=== PATIENT | female | born 1940 | race Caucasian/White ===

== ENCOUNTER 2017-11-30 10:46 | Inpatient (IN) ==
[~2017-11-30 10:46] MED LIST: diphenhydrAMINE 50 MG/1 ML VIAL IV ONE
[2017-11-30 11:48] LABS: Basophils % 0.6 % (0.0-0.8); Eosinophils # 0.2 10*3/uL (0.0-0.87); Eosinophils % 2.2 % (0.00-10.9); Hematocrit 24.6 VOL% (35.7-47.0); Hemoglobin 8.3 GM/DL (12.0-16.0); Immature Granulocytes % 0.4 %; Immature Granulocytes Absolute 0.03 #; Lymphocytes # 1.2 10*3/uL (1.4-4.0); Lymphocytes % 17.8 % (21.3-54.2); Mean Corpuscular HGB Conc 33.7 GM/DL (32-36); Mean Corpuscular Hemoglobin 32 PG (27-34); Mean Corpuscular Volume 96.1 FL (87-102); Mean Platelet Volume 9.3 FL (9.6-12.0); Monocytes # 0.7 10*3/uL (0.11-0.8); Monocytes % 9.4 % (1.7-12.7); Neutrophils # 4.8 10*3/uL (1.4-7.4); Neutrophils % 69.6 % (38.7-73.9); Platelet Count 298 T/CUMM (130-400); Red Blood Count 2.56 MC/CUMM (3.8-5.5); Red Cell Distribution Width 13.2 % (9.3-17.3); White Blood Count 6.9 T/CUMM (4-12)
[2017-11-30 12:06] LABS: Albumin 3.6 G/DL (3.4-5.0); Bilirubin,Total 0.5 MG/DL (0.2-1.0); Calcium 9.1 MG/DL (8.5-10.1); Osmolality,Calculated 254.6 MOS/KG (273-304); Potassium 4.1 MMOL/L (3.5-5.1); Total Protein 7.3 G/DL (6.4-8.3); Troponin I Only 0.027 NG/ML (0.00-0.045)
[2017-11-30] MEDS ORDERED: ALBUTEROL/IPRATROPIUM 3 ML NEB RESP TX STA (13:40)
[2017-11-30] MEDS ORDERED: FUROSEMIDE 40 MG/4 ML VIAL IV STA (13:41)
[2017-11-30] MEDS ORDERED: FUROSEMIDE 40 MG/4 ML VIAL ONE (13:43)
[2017-11-30] MEDS ORDERED: SODIUM CHLORIDE 0.9% 1,000 ML IV PRN (20:02)
[2017-11-30] MEDS ORDERED: DEXTROSE 50% 25 GM/50 ML VIAL IV PRN (20:05)
[2017-11-30] MEDS ORDERED: GLUCAGON 1 MG VIAL IM PRN (20:05)
[2017-11-30] MEDS ORDERED: ONDANSETRON 4 MG/2 ML VIAL IV PRN (20:05)
[2017-11-30] MEDS ORDERED: ACETAMINOPHEN 325 MG TABLET PO PRN (20:05)
[2017-11-30] MEDS ORDERED: ENOXAPARIN 30 MG/0.3 ML SYRINGE SUBCUT SCH (21:00)
[2017-11-30] MEDS ORDERED: ATORVASTATIN 40 MG TABLET PO SCH (21:00)
[2017-11-30] MEDS: INSULIN LISPRO 100 UNIT/ML SUBCUT SCH (22:07)
[2017-11-30] MEDS ORDERED: ALBUTEROL/IPRATROPIUM 3 ML NEB RESP TX PRN (22:49)
[2017-11-30] MEDS ORDERED: diphenhydrAMINE 50 MG/1 ML VIAL ONE (23:43)
[2017-12-01 04:50] LABS: Basophils % 0.5 % (0.0-0.8); Eosinophils # 0.1 10*3/uL (0.0-0.87); Eosinophils % 1.6 % (0.00-10.9); Hematocrit 22.8 VOL% (35.7-47.0); Hemoglobin 8.2 GM/DL (12.0-16.0); Immature Granulocytes % 0.7 %; Immature Granulocytes Absolute 0.06 #; Lymphocytes # 1.2 10*3/uL (1.4-4.0); Lymphocytes % 14.3 % (21.3-54.2); Mean Corpuscular Hemoglobin 33 PG (27-34); Mean Corpuscular Volume 92.7 FL (87-102); Mean Platelet Volume 9.9 FL (9.6-12.0); Monocytes # 0.9 10*3/uL (0.11-0.8); Monocytes % 10.4 % (1.7-12.7); Neutrophils # 6.2 10*3/uL (1.4-7.4); Neutrophils % 72.5 % (38.7-73.9); Platelet Count 285 T/CUMM (130-400); Red Blood Count 2.46 MC/CUMM (3.8-5.5); Red Cell Distribution Width 13.2 % (9.3-17.3); White Blood Count 8.5 T/CUMM (4-12)
[2017-12-01 04:55] LABS: Calcium 8.6 MG/DL (8.5-10.1); Osmolality,Calculated 249.5 MOS/KG (273-304); Potassium 4.4 MMOL/L (3.5-5.1)
[2017-12-01] MEDS: INSULIN LISPRO 100 UNIT/ML SUBCUT SCH ×2 (07:48→12:31)
[2017-12-01] MEDS ORDERED: FUROSEMIDE 20 MG/2 ML VIAL IV SCH (08:00)
[2017-12-01] MEDS ORDERED: LETROZOLE 2.5 MG TABLET PO SCH (09:00)
[2017-12-01] MEDS ORDERED: OLMESARTAN 20 MG TABLET PO SCH (09:00)
[2017-12-01] MEDS ORDERED: PANTOPRAZOLE 40 MG TABLET PO SCH (09:00)
[2017-12-01] MEDS ORDERED: CHOLECALCIFEROL 1,000 UNIT TABLET PO SCH (09:00)
[2017-12-01] MEDS ORDERED: ASPIRIN EC 81 MG TABLET PO SCH (09:00)
[2017-12-01] MEDS ORDERED: CALCIUM (CARBONATE)/VITAMIN D 600 MG-400 UNIT TABLET PO SCH (09:00)
[2017-12-01] MEDS ORDERED: LACTOBACILLUS ACIDOPHILUS/BULGARICUS CAPLET PO SCH (09:00)
[2017-12-01 11:34] VITALS: BP 172/77
== END 2017-12-01 13:45 | disposition home health service (06) | DRG 292 ==
LOC: N.ED 10:46 → N.EDINP 19:16 → N.2E 20:34
PROVIDERS: ADMIT Hospitalist; ATTEND Hospitalist
PROC: IRTHORA (2017-11-30 15:05)

== ENCOUNTER 2017-12-05 19:51 | Inpatient (IN) ==
[2017-12-05] MEDS ORDERED: MORPHINE 4 MG/1 ML VIAL IV STA (20:00)
[2017-12-05] MEDS ORDERED: ALBUTEROL/IPRATROPIUM 3 ML NEB RESP TX STA (20:00)
[2017-12-05] MEDS ORDERED: methylPREDNISolone SOD SUC 125 MG/2 ML VIAL IV STA (20:00)
[2017-12-05] MEDS ORDERED: ONDANSETRON 4 MG/2 ML VIAL IV STA (20:00)
[2017-12-05] MEDS ORDERED: MAGNESIUM SULF RIDER 2 GM in PREMIX 1 EACH IV STA (20:00)
[2017-12-05] MEDS ORDERED: ALBUTEROL 2.5 MG/3 ML NEB RESP TX SCH (20:00)
[2017-12-05] MEDS ORDERED: FUROSEMIDE 100 MG/10 ML VIAL IV STA (20:00)
[2017-12-05 20:15] LABS: Basophils # 0.1 10*3/uL (0.0-0.2); Basophils % 0.7 % (0.0-0.8); Eosinophils # 0.2 10*3/uL (0.0-0.87); Eosinophils % 1.8 % (0.00-10.9); Hematocrit 26.8 VOL% (35.7-47.0); Hemoglobin 8.9 GM/DL (12.0-16.0); Immature Granulocytes % 0.4 %; Immature Granulocytes Absolute 0.04 #; Lymphocytes # 2.6 10*3/uL (1.4-4.0); Lymphocytes % 27.1 % (21.3-54.2); Mean Corpuscular HGB Conc 33.2 GM/DL (32-36); Mean Corpuscular Hemoglobin 32 PG (27-34); Mean Corpuscular Volume 97.1 FL (87-102); Mean Platelet Volume 9.2 FL (9.6-12.0); Monocytes # 0.5 10*3/uL (0.11-0.8); Monocytes % 5.2 % (1.7-12.7); Neutrophils # 6.2 10*3/uL (1.4-7.4); Neutrophils % 64.8 % (38.7-73.9); Platelet Count 366 T/CUMM (130-400); Red Blood Count 2.76 MC/CUMM (3.8-5.5); Red Cell Distribution Width 13.2 % (9.3-17.3); White Blood Count 9.5 T/CUMM (4-12)
[2017-12-05] MEDS ORDERED: LORazepam 2 MG/1 ML VIAL ONE (20:23)
[2017-12-05] MEDS ORDERED: FUROSEMIDE 40 MG/4 ML VIAL ONE (20:28)
[2017-12-05] MEDS ORDERED: LORazepam 2 MG/1 ML VIAL IV STA (20:28)
[2017-12-05 20:29] LABS: PT Patient Result 10.6 SECS
[2017-12-05] MEDS ORDERED: MAGNESIUM SULF RIDER 0 ML IV ONE (20:29)
[2017-12-05 20:33] LABS: Lactic Acid 3.1 MMOL/L (0.4-2.0)
[2017-12-05 20:37] LABS: ABG Base Excess -7.8 MMOL/L (-2.5-2.5); ABG Oxygen Saturation 90.7 % (95-100); ABG PCO2 44.2 MM HG (35-48); ABG PH 7.246 (7.35-7.45); ABG PO2 72.6 MM HG (80-95); ABG TCO2 18.1 MMOL/L (23-27); Allen Test Positive; Pt O2 Delivery Device BIPAP
[2017-12-05 20:44] LABS: Alanine Aminotransferase 26 U/L (13-56); Albumin 3.7 G/DL (3.4-5.0); Alkaline Phosphatase 76 U/L (45-117); Aspartate Amino Transferase 31 U/L (0-37); Bilirubin,Total < 0.39 MG/DL (0.2-1.0); Blood Urea Nitrogen 19 MG/DL (7-18); Calcium 8.8 MG/DL (8.5-10.1); Glucose 254 MG/DL (74-106); Osmolality,Calculated 250.3 MOS/KG (273-304); Potassium 5.1 MMOL/L (3.5-5.1)
[2017-12-05 20:47] LABS: Troponin I Only 0.056 NG/ML (0.00-0.045)
[2017-12-05 20:49] LABS: Sodium 119 MMOL/L (136-145)
[2017-12-05] MEDS ORDERED: MORPHINE 4 MG/1 ML VIAL IV PRN (23:14)
[2017-12-05] MEDS ORDERED: ONDANSETRON 4 MG/2 ML VIAL IV PRN (23:14)
[2017-12-05] MEDS ORDERED: GLUCAGON 1 MG VIAL IM PRN (23:14)
[2017-12-06] MEDS: PANTOPRAZOLE 40 MG VIAL IV SCH ×2 (00:55→23:35)
[2017-12-06] MEDS: INSULIN REGULAR 100 UNIT/ML SUBCUT SCH ×4 (01:02→18:50)
[2017-12-06 02:23] LABS: Calcium 8.5 MG/DL (8.5-10.1); Osmolality,Calculated 249.9 MOS/KG (273-304); Potassium 4.9 MMOL/L (3.5-5.1)
[2017-12-06 04:46] LABS: ABG Base Excess -1.5 MMOL/L (-2.5-2.5); ABG HCO3 23.2 MMOL/L (20-26); ABG Oxygen Saturation 99.4 % (95-100); ABG PCO2 34.5 MM HG (35-48); ABG PH 7.422 (7.35-7.45); Allen Test Positive; Pt O2 Delivery Device BIPAP
[2017-12-06] MEDS: DEXTROSE 50% 25 GM/50 ML VIAL IV PRN ×2 (07:18→21:04)
[2017-12-06] MEDS: FUROSEMIDE 40 MG/4 ML VIAL IV SCH ×2 (09:08→16:54)
[2017-12-06] MEDS: DOCUSATE SODIUM 100 MG CAPSULE PO SCH ×2 (09:14→20:28)
[2017-12-06] MEDS: ENOXAPARIN 30 MG/0.3 ML SYRINGE SUBCUT SCH (09:15)
[2017-12-06] MEDS ORDERED: LORazepam 1 MG TABLET PO ONE (09:30)
[2017-12-06] MEDS ORDERED: CLOPIDOGREL 300 MG TABLET PO ONE (12:50)
[2017-12-06] MEDS: METOPROLOL TARTRATE 25 MG TABLET PO SCH ×2 (14:23→20:28)
[2017-12-06] MEDS: ISOSORBIDE MONONITRATE 30 MG TABLET PO SCH (14:23)
[2017-12-06 15:01] LABS: Apearance,Urine Slightly Hazy (Clear); Bacteria,Urine Occasional /HPF (Few); Bilirubin,Urine Negative (Negative); Blood, Urine Negative (Negative); Glucose,Urine (UA) 50 mg/dL (Negative); Ketones,Urine Negative (Negative); Nitrite,Urine Negative (Negative); Protein,Urine 100 MG/DL; RBC,Urine 1 /HPF (0-4); Urine Color Yellow (Yellow); Urine Specific Gravity 1.008 (1.001-1.035); Urine Urobilinogen < 2.0 EU/DL (0.2-1.0); WBC,Urine <1 /HPF (0-6)
[2017-12-06] MEDS ORDERED: VANCOMYCIN INJ 750 MG in SODIUM CHLORIDE 0.9% 250 ML IV SCH (16:00)
[2017-12-06] MEDS: ALBUTEROL/IPRATROPIUM 3 ML NEB RESP TX PRN (20:25)
[2017-12-06] MEDS: ATORVASTATIN 40 MG TABLET PO SCH (20:28)
[2017-12-06] MEDS: ZALEPLON 5 MG CAPSULE PO SCH (21:54)
[2017-12-07] MEDS: DEXTROSE 50% 25 GM/50 ML VIAL IV PRN (00:08)
[2017-12-07] MEDS: INSULIN REGULAR 100 UNIT/ML SUBCUT SCH ×4 (00:08→18:33)
[2017-12-07] MEDS: ALBUTEROL/IPRATROPIUM 3 ML NEB RESP TX PRN ×2 (03:04→20:25)
[2017-12-07 05:15] LABS: Basophils % 0.5 % (0.0-0.8); Eosinophils # 0.1 10*3/uL (0.0-0.87); Eosinophils % 1.2 % (0.00-10.9); Hematocrit 22.1 VOL% (35.7-47.0); Hemoglobin 7.7 GM/DL (12.0-16.0); Immature Granulocytes % 0.5 %; Immature Granulocytes Absolute 0.03 #; Lymphocytes # 1.5 10*3/uL (1.4-4.0); Lymphocytes % 22.9 % (21.3-54.2); Mean Corpuscular HGB Conc 34.8 GM/DL (32-36); Mean Corpuscular Hemoglobin 32 PG (27-34); Mean Corpuscular Volume 91.3 FL (87-102); Mean Platelet Volume 9.7 FL (9.6-12.0); Monocytes # 0.6 10*3/uL (0.11-0.8); Monocytes % 9.3 % (1.7-12.7); Neutrophils # 4.4 10*3/uL (1.4-7.4); Neutrophils % 65.6 % (38.7-73.9); Platelet Count 294 T/CUMM (130-400); Red Blood Count 2.42 MC/CUMM (3.8-5.5); Red Cell Distribution Width 13.1 % (9.3-17.3); White Blood Count 6.7 T/CUMM (4-12)
[2017-12-07 05:44] LABS: Calcium 8.1 MG/DL (8.5-10.1); Osmolality,Calculated 255.6 MOS/KG (273-304); Potassium 4.8 MMOL/L (3.5-5.1)
[2017-12-07 06:02] LABS: Risk Ratio 1.56; VLDL CHOLESTEROL 10.8 MG/DL
[2017-12-07] MEDS ORDERED: SODIUM CHLORIDE 0.9% 1,000 ML IV PRN (07:48)
[2017-12-07] MEDS ORDERED: diphenhydrAMINE CAP 50 MG CAPSULE PO ONE (10:20)
[2017-12-07] MEDS ORDERED: ACETAMINOPHEN 325 MG TABLET PO ONE (10:20)
[2017-12-07] MEDS ORDERED: predniSONE 20 MG TABLET PO ONE (10:20)
[2017-12-07] MEDS: DOCUSATE SODIUM 100 MG CAPSULE PO SCH ×2 (10:46→20:10)
[2017-12-07] MEDS: OLMESARTAN 20 MG TABLET PO SCH (10:46)
[2017-12-07] MEDS: FUROSEMIDE 40 MG/4 ML VIAL IV SCH (10:46)
[2017-12-07] MEDS: ISOSORBIDE MONONITRATE 30 MG TABLET PO SCH (10:47)
[2017-12-07] MEDS: LETROZOLE 2.5 MG TABLET PO SCH (10:47)
[2017-12-07] MEDS: MONTELUKAST 10 MG TABLET PO SCH (10:47)
[2017-12-07] MEDS: CLOPIDOGREL 75 MG TABLET PO SCH (10:47)
[2017-12-07] MEDS: METOPROLOL TARTRATE 25 MG TABLET PO SCH ×2 (10:47→20:10)
[2017-12-07] MEDS: ENOXAPARIN 30 MG/0.3 ML SYRINGE SUBCUT SCH (10:47)
[2017-12-07] MEDS ORDERED: ALPRAZolam 0.25 MG TABLET ONE (12:17)
[2017-12-07] MEDS: ALPRAZolam 0.25 MG TABLET PO SCH ×2 (12:24→20:10)
[2017-12-07] MEDS: NICOTINE 21 MG/24 HR PATCH TRANSDERM SCH (12:32)
[2017-12-07] MEDS ORDERED: LEVOFLOXACIN INJ 500 MG in PREMIX 1 EACH IV ONE (16:00)
[2017-12-07] MEDS ORDERED: VANCOMYCIN INJ 1,000 MG in SODIUM CHLORIDE 0.9% 250 ML IV PRN (18:36)
[2017-12-07] MEDS ORDERED: hydrALAZINE 20 MG/1 ML VIAL IV PRN ×2 (18:40→19:44)
[2017-12-07] MEDS ORDERED: FUROSEMIDE 40 MG/4 ML VIAL IV ONE (18:45)
[2017-12-07 19:28] LABS: Hematocrit 32.7 VOL% (35.7-47.0); Hemoglobin 11.1 GM/DL (12.0-16.0)
[2017-12-07] MEDS ORDERED: VANCOMYCIN INJ 1,000 MG in SODIUM CHLORIDE 0.9% 250 ML IV ONE (20:00)
[2017-12-07] MEDS: ATORVASTATIN 40 MG TABLET PO SCH (20:10)
[2017-12-07] MEDS: ZALEPLON 5 MG CAPSULE PO SCH (20:10)
[2017-12-07] MEDS: CYPROHEPTADINE 4 MG TABLET PO SCH (20:10)
[2017-12-07] MEDS ORDERED: ALBUTEROL/IPRATROPIUM 3 ML NEB RESP TX PRN (21:48)
[2017-12-07] MEDS: PANTOPRAZOLE 40 MG VIAL IV SCH (23:41)
[2017-12-08] MEDS: INSULIN REGULAR 100 UNIT/ML SUBCUT SCH ×4 (00:19→18:51)
[2017-12-08 05:32] LABS: Basophils % 0.1 % (0.0-0.8); Eosinophils % 0.3 % (0.00-10.9); Hematocrit 29.3 VOL% (35.7-47.0); Hemoglobin 10.2 GM/DL (12.0-16.0); Immature Granulocytes % 0.4 %; Immature Granulocytes Absolute 0.03 #; Lymphocytes # 1.4 10*3/uL (1.4-4.0); Lymphocytes % 20.1 % (21.3-54.2); Mean Corpuscular HGB Conc 34.8 GM/DL (32-36); Mean Corpuscular Hemoglobin 30 PG (27-34); Mean Corpuscular Volume 86.2 FL (87-102); Mean Platelet Volume 9.4 FL (9.6-12.0); Monocytes # 0.7 10*3/uL (0.11-0.8); Monocytes % 9.8 % (1.7-12.7); Neutrophils # 4.6 10*3/uL (1.4-7.4); Neutrophils % 69.3 % (38.7-73.9); Platelet Count 278 T/CUMM (130-400); Red Cell Distribution Width 16.2 % (9.3-17.3); White Blood Count 6.7 T/CUMM (4-12)
[2017-12-08 06:15] LABS: Albumin 3.4 G/DL (3.4-5.0); Bilirubin,Total 0.7 MG/DL (0.2-1.0); Calcium 8.1 MG/DL (8.5-10.1); Osmolality,Calculated 250.9 MOS/KG (273-304); Total Protein 6.5 G/DL (6.4-8.3)
[2017-12-08] MEDS ORDERED: FUROSEMIDE 40 MG/4 ML VIAL IV SCH (09:00)
[2017-12-08] MEDS: MONTELUKAST 10 MG TABLET PO SCH (09:57)
[2017-12-08] MEDS: DOCUSATE SODIUM 100 MG CAPSULE PO SCH ×2 (09:57→20:56)
[2017-12-08] MEDS: OLMESARTAN 20 MG TABLET PO SCH (09:57)
[2017-12-08] MEDS: LETROZOLE 2.5 MG TABLET PO SCH (09:57)
[2017-12-08] MEDS: ALPRAZolam 0.25 MG TABLET PO SCH ×2 (09:58→20:56)
[2017-12-08] MEDS: METOPROLOL TARTRATE 25 MG TABLET PO SCH ×2 (09:58→20:56)
[2017-12-08] MEDS: NICOTINE 21 MG/24 HR PATCH TRANSDERM SCH (09:58)
[2017-12-08] MEDS: ISOSORBIDE MONONITRATE 30 MG TABLET PO SCH (09:58)
[2017-12-08] MEDS: ASPIRIN EC 81 MG TABLET PO SCH (09:58)
[2017-12-08] MEDS: CYPROHEPTADINE 4 MG TABLET PO SCH ×2 (14:55→20:55)
[2017-12-08] MEDS: ENOXAPARIN 30 MG/0.3 ML SYRINGE SUBCUT SCH (16:22)
[2017-12-08] MEDS: CLOPIDOGREL 75 MG TABLET PO SCH (16:22)
[2017-12-08] MEDS: LEVOFLOXACIN INJ 250 MG in PREMIX 1 EACH IV SCH (16:45)
[2017-12-08] MEDS: ATORVASTATIN 40 MG TABLET PO SCH (20:55)
[2017-12-08] MEDS: ZALEPLON 5 MG CAPSULE PO SCH (20:56)
[2017-12-08] MEDS: VANCOMYCIN INJ 750 MG in SODIUM CHLORIDE 0.9% 250 ML IV SCH (20:57)
[2017-12-08] MEDS: PANTOPRAZOLE 40 MG VIAL IV SCH (23:26)
[2017-12-09] MEDS: INSULIN REGULAR 100 UNIT/ML SUBCUT SCH ×4 (01:53→17:55)
[2017-12-09 04:58] LABS: Basophils # 0.1 10*3/uL (0.0-0.2); Basophils % 0.7 % (0.0-0.8); Eosinophils # 0.2 10*3/uL (0.0-0.87); Eosinophils % 2.4 % (0.00-10.9); Hematocrit 28.4 VOL% (35.7-47.0); Hemoglobin 10.2 GM/DL (12.0-16.0); Immature Granulocytes % 0.4 %; Immature Granulocytes Absolute 0.03 #; Lymphocytes # 1.7 10*3/uL (1.4-4.0); Lymphocytes % 23.3 % (21.3-54.2); Mean Corpuscular HGB Conc 35.9 GM/DL (32-36); Mean Corpuscular Hemoglobin 30 PG (27-34); Mean Corpuscular Volume 84.8 FL (87-102); Mean Platelet Volume 9.5 FL (9.6-12.0); Monocytes # 0.6 10*3/uL (0.11-0.8); Monocytes % 8.8 % (1.7-12.7); Neutrophils # 4.6 10*3/uL (1.4-7.4); Neutrophils % 64.4 % (38.7-73.9); Platelet Count 290 T/CUMM (130-400); Red Blood Count 3.35 MC/CUMM (3.8-5.5); Red Cell Distribution Width 16.5 % (9.3-17.3); White Blood Count 7.2 T/CUMM (4-12)
[2017-12-09 05:27] LABS: Calcium 7.9 MG/DL (8.5-10.1); Osmolality,Calculated 259.5 MOS/KG (273-304); Potassium 3.7 MMOL/L (3.5-5.1)
[2017-12-09] MEDS: ASPIRIN EC 81 MG TABLET PO SCH (09:55)
[2017-12-09] MEDS: METOPROLOL TARTRATE 25 MG TABLET PO SCH ×2 (09:55→21:25)
[2017-12-09] MEDS: ISOSORBIDE MONONITRATE 30 MG TABLET PO SCH (09:55)
[2017-12-09] MEDS: LETROZOLE 2.5 MG TABLET PO SCH (09:55)
[2017-12-09] MEDS: DOCUSATE SODIUM 100 MG CAPSULE PO SCH ×2 (09:55→21:25)
[2017-12-09] MEDS: NICOTINE 21 MG/24 HR PATCH TRANSDERM SCH (09:55)
[2017-12-09] MEDS: FUROSEMIDE 40 MG/4 ML VIAL IV SCH ×2 (09:55→17:34)
[2017-12-09] MEDS: OLMESARTAN 20 MG TABLET PO SCH (09:55)
[2017-12-09] MEDS: ALPRAZolam 0.25 MG TABLET PO SCH ×2 (09:56→21:25)
[2017-12-09] MEDS: MONTELUKAST 10 MG TABLET PO SCH (09:56)
[2017-12-09] MEDS: CYPROHEPTADINE 4 MG TABLET PO SCH ×2 (09:56→21:25)
[2017-12-09] MEDS: ENOXAPARIN 30 MG/0.3 ML SYRINGE SUBCUT SCH (15:25)
[2017-12-09] MEDS: LEVOFLOXACIN INJ 250 MG in PREMIX 1 EACH IV SCH (17:35)
[2017-12-09] MEDS: ZALEPLON 5 MG CAPSULE PO SCH (21:24)
[2017-12-09] MEDS: VANCOMYCIN INJ 750 MG in SODIUM CHLORIDE 0.9% 250 ML IV SCH (21:25)
[2017-12-09] MEDS: ATORVASTATIN 40 MG TABLET PO SCH (21:25)
[2017-12-09] MEDS: PANTOPRAZOLE 40 MG VIAL IV SCH (23:30)
[2017-12-10] MEDS: INSULIN REGULAR 100 UNIT/ML SUBCUT SCH ×4 (01:31→17:58)
[2017-12-10 05:07] LABS: Basophils # 0.1 10*3/uL (0.0-0.2); Basophils % 0.9 % (0.0-0.8); Eosinophils # 0.2 10*3/uL (0.0-0.87); Eosinophils % 2.9 % (0.00-10.9); Hemoglobin 10.1 GM/DL (12.0-16.0); Immature Granulocytes % 0.5 %; Immature Granulocytes Absolute 0.03 #; Lymphocytes # 1.7 10*3/uL (1.4-4.0); Lymphocytes % 25.7 % (21.3-54.2); Mean Corpuscular HGB Conc 34.8 GM/DL (32-36); Mean Corpuscular Hemoglobin 30 PG (27-34); Mean Corpuscular Volume 86.3 FL (87-102); Mean Platelet Volume 9.6 FL (9.6-12.0); Monocytes # 0.7 10*3/uL (0.11-0.8); Monocytes % 10.2 % (1.7-12.7); Neutrophils # 3.9 10*3/uL (1.4-7.4); Neutrophils % 59.8 % (38.7-73.9); Platelet Count 325 T/CUMM (130-400); Red Blood Count 3.36 MC/CUMM (3.8-5.5); Red Cell Distribution Width 16.3 % (9.3-17.3); White Blood Count 6.6 T/CUMM (4-12)
[2017-12-10 05:34] LABS: Calcium 7.8 MG/DL (8.5-10.1); Osmolality,Calculated 264.2 MOS/KG (273-304)
[2017-12-10] MEDS: LETROZOLE 2.5 MG TABLET PO SCH (09:56)
[2017-12-10] MEDS: DOCUSATE SODIUM 100 MG CAPSULE PO SCH ×2 (09:56→21:03)
[2017-12-10] MEDS: MONTELUKAST 10 MG TABLET PO SCH (09:56)
[2017-12-10] MEDS: ISOSORBIDE MONONITRATE 30 MG TABLET PO SCH (09:56)
[2017-12-10] MEDS: OLMESARTAN 20 MG TABLET PO SCH (09:56)
[2017-12-10] MEDS: ASPIRIN EC 81 MG TABLET PO SCH (09:56)
[2017-12-10] MEDS: METOPROLOL TARTRATE 25 MG TABLET PO SCH ×2 (09:57→21:03)
[2017-12-10] MEDS: NICOTINE 21 MG/24 HR PATCH TRANSDERM SCH (09:57)
[2017-12-10] MEDS: CYPROHEPTADINE 4 MG TABLET PO SCH ×2 (09:57→21:03)
[2017-12-10] MEDS: ENOXAPARIN 30 MG/0.3 ML SYRINGE SUBCUT SCH (09:57)
[2017-12-10] MEDS: FUROSEMIDE 40 MG/4 ML VIAL IV SCH ×2 (09:57→17:35)
[2017-12-10] MEDS: ALPRAZolam 0.25 MG TABLET PO SCH ×3 (09:57→21:03)
[2017-12-10] MEDS: VANCOMYCIN INJ 750 MG in SODIUM CHLORIDE 0.9% 250 ML IV SCH (15:43)
[2017-12-10] MEDS: LEVOFLOXACIN INJ 250 MG in PREMIX 1 EACH IV SCH (17:01)
[2017-12-10] MEDS: ATORVASTATIN 40 MG TABLET PO SCH (21:03)
[2017-12-10] MEDS: ZALEPLON 5 MG CAPSULE PO SCH (21:03)
[2017-12-11] MEDS: PANTOPRAZOLE 40 MG VIAL IV SCH
[2017-12-11] MEDS: INSULIN REGULAR 100 UNIT/ML SUBCUT SCH ×4 (00:59→17:19)
[2017-12-11] MEDS: DEXTROSE 50% 25 GM/50 ML VIAL IV PRN (03:50)
[2017-12-11] MEDS: ASPIRIN EC 81 MG TABLET PO SCH (09:12)
[2017-12-11] MEDS: LETROZOLE 2.5 MG TABLET PO SCH (09:12)
[2017-12-11] MEDS: DOCUSATE SODIUM 100 MG CAPSULE PO SCH ×2 (09:12→21:37)
[2017-12-11] MEDS: NICOTINE 21 MG/24 HR PATCH TRANSDERM SCH (09:12)
[2017-12-11] MEDS: CYPROHEPTADINE 4 MG TABLET PO SCH ×2 (09:12→21:38)
[2017-12-11] MEDS: MONTELUKAST 10 MG TABLET PO SCH (09:12)
[2017-12-11] MEDS: METOPROLOL TARTRATE 25 MG TABLET PO SCH ×2 (09:12→21:38)
[2017-12-11] MEDS: FUROSEMIDE 40 MG/4 ML VIAL IV SCH ×2 (09:12→15:43)
[2017-12-11] MEDS: ISOSORBIDE MONONITRATE 30 MG TABLET PO SCH (09:14)
[2017-12-11] MEDS: OLMESARTAN 20 MG TABLET PO SCH (09:14)
[2017-12-11] MEDS: ENOXAPARIN 30 MG/0.3 ML SYRINGE SUBCUT SCH (09:15)
[2017-12-11] MEDS: VANCOMYCIN INJ 750 MG in SODIUM CHLORIDE 0.9% 250 ML IV SCH (09:17)
[2017-12-11] MEDS: ALPRAZolam 0.25 MG TABLET PO SCH ×2 (10:13→21:38)
[2017-12-11] MEDS: LEVOFLOXACIN INJ 250 MG in PREMIX 1 EACH IV SCH (15:45)
[2017-12-11] MEDS: ATORVASTATIN 40 MG TABLET PO SCH (21:37)
[2017-12-11] MEDS: NYSTATIN 500,000 UNIT/5 ML UDCUP SWISH/SWAL SCH (21:37)
[2017-12-11] MEDS: ZALEPLON 5 MG CAPSULE PO SCH (21:38)
[2017-12-11] MEDS: AMPICILLIN/SULBACTAM 1,500 MG in SODIUM CHLORIDE 0.9% 100 ML IV SCH (21:38)
[2017-12-12] MEDS: INSULIN REGULAR 100 UNIT/ML SUBCUT SCH ×3 (01:10→13:49)
[2017-12-12] MEDS: PANTOPRAZOLE 40 MG VIAL IV SCH (01:18)
[2017-12-12] MEDS: AMPICILLIN/SULBACTAM 1,500 MG in SODIUM CHLORIDE 0.9% 100 ML IV SCH ×3 (04:04→14:24)
[2017-12-12] MEDS: VANCOMYCIN INJ 750 MG in SODIUM CHLORIDE 0.9% 250 ML IV SCH (04:57)
[2017-12-12 05:04] LABS: Basophils # 0.1 10*3/uL (0.0-0.2); Basophils % 1.1 % (0.0-0.8); Eosinophils # 0.3 10*3/uL (0.0-0.87); Eosinophils % 4.2 % (0.00-10.9); Hemoglobin 9.8 GM/DL (12.0-16.0); Immature Granulocytes % 0.3 %; Immature Granulocytes Absolute 0.02 #; Lymphocytes # 1.6 10*3/uL (1.4-4.0); Lymphocytes % 24.5 % (21.3-54.2); Mean Corpuscular HGB Conc 33.8 GM/DL (32-36); Mean Corpuscular Hemoglobin 30 PG (27-34); Mean Corpuscular Volume 87.6 FL (87-102); Mean Platelet Volume 9.4 FL (9.6-12.0); Monocytes # 0.7 10*3/uL (0.11-0.8); Monocytes % 11.2 % (1.7-12.7); Neutrophils # 3.9 10*3/uL (1.4-7.4); Neutrophils % 58.7 % (38.7-73.9); Platelet Count 330 T/CUMM (130-400); Red Blood Count 3.31 MC/CUMM (3.8-5.5); Red Cell Distribution Width 16.7 % (9.3-17.3); White Blood Count 6.6 T/CUMM (4-12)
[2017-12-12 05:35] LABS: Calcium 7.9 MG/DL (8.5-10.1); Osmolality,Calculated 267.8 MOS/KG (273-304); Potassium 3.9 MMOL/L (3.5-5.1)
[2017-12-12] MEDS: MONTELUKAST 10 MG TABLET PO SCH (10:03)
[2017-12-12] MEDS: ASPIRIN EC 81 MG TABLET PO SCH (10:03)
[2017-12-12] MEDS: DOCUSATE SODIUM 100 MG CAPSULE PO SCH (10:03)
[2017-12-12] MEDS: CYPROHEPTADINE 4 MG TABLET PO SCH (10:03)
[2017-12-12] MEDS: ISOSORBIDE MONONITRATE 30 MG TABLET PO SCH (10:03)
[2017-12-12] MEDS: METOPROLOL TARTRATE 25 MG TABLET PO SCH (10:03)
[2017-12-12] MEDS: OLMESARTAN 20 MG TABLET PO SCH (10:03)
[2017-12-12] MEDS: ENOXAPARIN 30 MG/0.3 ML SYRINGE SUBCUT SCH (10:04)
[2017-12-12] MEDS: LETROZOLE 2.5 MG TABLET PO SCH (10:04)
[2017-12-12] MEDS: FUROSEMIDE 40 MG/4 ML VIAL IV SCH (10:04)
[2017-12-12] MEDS: NICOTINE 21 MG/24 HR PATCH TRANSDERM SCH (10:04)
[2017-12-12] MEDS: NYSTATIN 500,000 UNIT/5 ML UDCUP SWISH/SWAL SCH ×2 (10:04→14:24)
[2017-12-12] MEDS: ALPRAZolam 0.25 MG TABLET PO SCH (10:19)
[2017-12-12 12:03] VITALS: BP 108/62
[2017-12-12] MEDS ORDERED: VANCOMYCIN INJ 1,000 MG in SODIUM CHLORIDE 0.9% 250 ML IV SCH (21:00)
== END 2017-12-12 15:40 | disposition home health service (06) | DRG 291 ==
LOC: EDUNIT# → EDBD → N.ED 19:51 → N.EDINP 21:44 → SUATTDRO 21:44 → N.ICU 22:22 → N.TELES 12-06 20:50
PROVIDERS: ADMIT Hospitalist; ATTEND Internal Medicine

== ENCOUNTER 2017-12-15 22:44 | Inpatient (IN) ==
[2017-12-16 01:56] LABS: Basophils % 0.3 % (0.0-0.8); Eosinophils % 0.1 % (0.00-10.9); Hematocrit 34.5 VOL% (35.7-47.0); Hemoglobin 11.3 GM/DL (12.0-16.0); Immature Granulocytes % 0.5 %; Immature Granulocytes Absolute 0.05 #; Lymphocytes # 0.5 10*3/uL (1.4-4.0); Lymphocytes % 5.9 % (21.3-54.2); Mean Corpuscular HGB Conc 32.8 GM/DL (32-36); Mean Corpuscular Hemoglobin 30 PG (27-34); Mean Corpuscular Volume 90.6 FL (87-102); Monocytes # 0.3 10*3/uL (0.11-0.8); Monocytes % 3.3 % (1.7-12.7); Neutrophils # 8.2 10*3/uL (1.4-7.4); Neutrophils % 89.9 % (38.7-73.9); Platelet Count 313 T/CUMM (130-400); Red Blood Count 3.81 MC/CUMM (3.8-5.5); Red Cell Distribution Width 16.3 % (9.3-17.3); White Blood Count 9.1 T/CUMM (4-12)
[2017-12-16 01:58] LABS: ABG Base Excess -4.1 MMOL/L (-2.5-2.5); ABG Oxygen Saturation 99.3 % (95-100); ABG PCO2 48.8 MM HG (35-48); ABG PH 7.281 (7.35-7.45); ABG TCO2 20.8 MMOL/L (23-27)
[2017-12-16 02:15] LABS: Albumin 3.9 G/DL (3.4-5.0); Bilirubin,Total 0.5 MG/DL (0.2-1.0); Calcium 8.5 MG/DL (8.5-10.1); Osmolality,Calculated 265.1 MOS/KG (273-304); Potassium 4.9 MMOL/L (3.5-5.1); Total Protein 7.4 G/DL (6.4-8.3)
[2017-12-16 02:19] LABS: Troponin I Only 0.135 NG/ML (0.00-0.045)
[2017-12-17 06:01] LABS: Hematocrit 24.6 VOL% (35.7-47.0); Hemoglobin 8.6 GM/DL (12.0-16.0); Immature Granulocytes % 0.4 %; Immature Granulocytes Absolute 0.04 #; Lymphocytes # 0.8 10*3/uL (1.4-4.0); Lymphocytes % 9.1 % (21.3-54.2); Mean Corpuscular Hemoglobin 30 PG (27-34); Mean Corpuscular Volume 86.9 FL (87-102); Mean Platelet Volume 10.3 FL (9.6-12.0); Monocytes # 0.8 10*3/uL (0.11-0.8); Monocytes % 8.6 % (1.7-12.7); Neutrophils # 7.6 10*3/uL (1.4-7.4); Neutrophils % 81.9 % (38.7-73.9); Platelet Count 276 T/CUMM (130-400); Red Blood Count 2.83 MC/CUMM (3.8-5.5); Red Cell Distribution Width 16.4 % (9.3-17.3); White Blood Count 9.3 T/CUMM (4-12)
[2017-12-17 06:29] LABS: Calcium 7.9 MG/DL (8.5-10.1); Osmolality,Calculated 266.5 MOS/KG (273-304); Potassium 5.1 MMOL/L (3.5-5.1)
[2017-12-17 13:32] LABS: Apearance,Urine CLEAR (Clear); Bacteria,Urine Occasional /HPF (Few); Bilirubin,Urine Negative (Negative); Blood, Urine Negative (Negative); Glucose,Urine (UA) 150 mg/dL (Negative); Ketones,Urine Negative (Negative); Nitrite,Urine Negative (Negative); Protein,Urine 100 MG/DL; RBC,Urine 2 /HPF (0-4); Urine Color Straw (Yellow); Urine Specific Gravity 1.009 (1.001-1.035); Urine Urobilinogen < 2.0 EU/DL (0.2-1.0); WBC,Urine 1 /HPF (0-6)
[2017-12-18 04:51] LABS: Basophils % 0.1 % (0.0-0.8); Hematocrit 25.6 VOL% (35.7-47.0); Immature Granulocytes % 0.9 %; Immature Granulocytes Absolute 0.08 #; Lymphocytes # 0.7 10*3/uL (1.4-4.0); Lymphocytes % 8.2 % (21.3-54.2); Mean Corpuscular HGB Conc 35.2 GM/DL (32-36); Mean Corpuscular Hemoglobin 30 PG (27-34); Mean Corpuscular Volume 86.2 FL (87-102); Mean Platelet Volume 9.9 FL (9.6-12.0); Monocytes # 0.3 10*3/uL (0.11-0.8); Monocytes % 3.7 % (1.7-12.7); Neutrophils # 7.9 10*3/uL (1.4-7.4); Neutrophils % 87.1 % (38.7-73.9); Platelet Count 271 T/CUMM (130-400); Red Blood Count 2.97 MC/CUMM (3.8-5.5); Red Cell Distribution Width 16.4 % (9.3-17.3)
[2017-12-18 05:25] LABS: Calcium 8.2 MG/DL (8.5-10.1); Osmolality,Calculated 267.4 MOS/KG (273-304); Potassium 4.7 MMOL/L (3.5-5.1)
[2017-12-19 04:52] LABS: Hemoglobin 9.4 GM/DL (12.0-16.0); Immature Granulocytes % 0.8 %; Immature Granulocytes Absolute 0.07 #; Lymphocytes # 0.8 10*3/uL (1.4-4.0); Lymphocytes % 8.3 % (21.3-54.2); Mean Corpuscular HGB Conc 33.6 GM/DL (32-36); Mean Corpuscular Hemoglobin 30 PG (27-34); Mean Corpuscular Volume 89.7 FL (87-102); Mean Platelet Volume 10.2 FL (9.6-12.0); Monocytes # 0.3 10*3/uL (0.11-0.8); Monocytes % 3.7 % (1.7-12.7); Neutrophils # 8.1 10*3/uL (1.4-7.4); Neutrophils % 87.2 % (38.7-73.9); Platelet Count 282 T/CUMM (130-400); Red Blood Count 3.12 MC/CUMM (3.8-5.5); Red Cell Distribution Width 16.5 % (9.3-17.3); White Blood Count 9.3 T/CUMM (4-12)
[2017-12-19 04:59] LABS: Calcium 7.7 MG/DL (8.5-10.1); Osmolality,Calculated 274.2 MOS/KG (273-304); Potassium 5.1 MMOL/L (3.5-5.1)
[2017-12-20 04:29] LABS: Hematocrit 27.3 VOL% (35.7-47.0); Immature Granulocytes % 0.8 %; Immature Granulocytes Absolute 0.07 #; Lymphocytes # 0.9 10*3/uL (1.4-4.0); Lymphocytes % 9.6 % (21.3-54.2); Mean Corpuscular Hemoglobin 30 PG (27-34); Mean Corpuscular Volume 89.5 FL (87-102); Mean Platelet Volume 9.7 FL (9.6-12.0); Monocytes # 0.4 10*3/uL (0.11-0.8); Monocytes % 4.8 % (1.7-12.7); Neutrophils # 7.8 10*3/uL (1.4-7.4); Neutrophils % 84.8 % (38.7-73.9); Platelet Count 263 T/CUMM (130-400); Red Blood Count 3.05 MC/CUMM (3.8-5.5); Red Cell Distribution Width 16.3 % (9.3-17.3); White Blood Count 9.2 T/CUMM (4-12)
[2017-12-20 05:14] LABS: Calcium 7.9 MG/DL (8.5-10.1); Osmolality,Calculated 269.4 MOS/KG (273-304); Potassium 5.2 MMOL/L (3.5-5.1)
[2017-12-20 16:28] VITALS: BP 158/96
== END 2017-12-20 15:45 | disposition home health service (06) | DRG 291 ==
LOC: N.CC 12-16 01:19 → SUATTDRO 12-16 01:19 → N.TELEN 12-17 13:08
PROVIDERS: ADMIT Emergency Medicine; ATTEND Internal Medicine

== ENCOUNTER 2018-01-10 08:22 | Inpatient (IN) ==
[2018-01-10] MEDS ORDERED: AZITHROMYCIN INJ 500 MG in SODIUM CHLORIDE 0.9% 250 ML IV STA (09:06)
[2018-01-10] MEDS ORDERED: ONDANSETRON 4 MG/2 ML VIAL IV STA (09:06)
[2018-01-10] MEDS ORDERED: ALBUTEROL 2.5 MG/3 ML NEB RESP TX SCH (09:30)
[2018-01-10 10:15] LABS: Hematocrit 25.6 VOL% (35.7-47.0); Hemoglobin 9.3 GM/DL (12.0-16.0); Immature Granulocytes % 2.5 %; Immature Granulocytes Absolute 0.27 #; Lymphocytes # 1.2 10*3/uL (1.4-4.0); Mean Corpuscular HGB Conc 36.3 GM/DL (32-36); Mean Corpuscular Hemoglobin 30 PG (27-34); Mean Corpuscular Volume 83.1 FL (87-102); Mean Platelet Volume 9.3 FL (9.6-12.0); Monocytes # 1.1 10*3/uL (0.11-0.8); Monocytes % 10.3 % (1.7-12.7); Neutrophils # 8.3 10*3/uL (1.4-7.4); Neutrophils % 76.2 % (38.7-73.9); Platelet Count 351 T/CUMM (130-400); Red Blood Count 3.08 MC/CUMM (3.8-5.5); Red Cell Distribution Width 15.8 % (9.3-17.3); White Blood Count 10.9 T/CUMM (4-12)
[2018-01-10 10:23] LABS: Apearance,Urine CLEAR (Clear); Bilirubin,Urine Negative (Negative); Blood, Urine Negative (Negative); Glucose,Urine (UA) 50 mg/dL (Negative); Ketones,Urine Negative (Negative); Nitrite,Urine Negative (Negative); Protein,Urine 100 MG/DL; Urine Color Straw (Yellow); Urine Specific Gravity 1.004 (1.001-1.035); Urine Urobilinogen < 2.0 EU/DL (0.2-1.0)
[2018-01-10 10:23] LABS: PT Patient Result 10.4 SECS; Partial Thromboplastin Time 27.8 SECS (0-40)
[2018-01-10 10:40] LABS: Albumin 3.5 G/DL (3.4-5.0); Bilirubin,Total 0.5 MG/DL (0.2-1.0); Calcium 8.6 MG/DL (8.5-10.1); Potassium 5.7 MMOL/L (3.5-5.1); Total Protein 6.8 G/DL (6.4-8.3)
[2018-01-10 10:41] LABS: Troponin I Only < 0.015 NG/ML (0.00-0.045)
[2018-01-10] MEDS ORDERED: ALBUTEROL NEB SOLN 5 MG/ML 20 ML/BOTTLE RESP TX SCH (11:30)
[2018-01-10] MEDS ORDERED: FUROSEMIDE 40 MG/4 ML VIAL IV STA (12:06)
[2018-01-10] MEDS ORDERED: MORPHINE 4 MG/1 ML VIAL IV STA (12:07)
[2018-01-10] MEDS ORDERED: ALBUTEROL 2.5 MG/3 ML NEB RESP TX PRN (12:15)
[2018-01-10] MEDS ORDERED: ONDANSETRON 4 MG/2 ML VIAL IV PRN (12:15)
[2018-01-10] MEDS ORDERED: ALPRAZolam 0.25 MG TABLET PO PRN (12:20)
[2018-01-10] MEDS: PANTOPRAZOLE 40 MG VIAL IV SCH (13:04)
[2018-01-10] MEDS ORDERED: LORazepam 2 MG/1 ML VIAL IV STA ×2 (13:17→17:51)
[2018-01-10 15:45] LABS: ABG HCO3 22.2 MMOL/L (20-26); ABG Oxygen Saturation 99.5 % (95-100); ABG PCO2 56.8 MM HG (35-48); ABG PO2 317.5 MM HG (80-95); ABG TCO2 23.9 MMOL/L (23-27)
[2018-01-10 15:47] LABS: Calcium 8.1 MG/DL (8.5-10.1); Osmolality,Calculated 245.8 MOS/KG (273-304); Potassium 5.5 MMOL/L (3.5-5.1)
[2018-01-10 15:48] LABS: ABG PH 7.209 (7.35-7.45)
[2018-01-10] MEDS: FUROSEMIDE 40 MG/4 ML VIAL IV SCH (16:14)
[2018-01-10] MEDS ORDERED: ETOMIDATE 20 MG/10 ML VIAL IV ONE (17:56)
[2018-01-10] MEDS ORDERED: VECURONIUM 10 MG VIAL IV ONE (17:56)
[2018-01-10] MEDS ORDERED: ETOMIDATE 20 MG/10 ML VIAL IV STA (18:18)
[2018-01-10] MEDS ORDERED: VECURONIUM 10 MG VIAL IV STA (18:19)
[2018-01-10] MEDS ORDERED: ASPIRIN EC 81 MG TABLET PO SCH (19:00)
[2018-01-10] MEDS ORDERED: Calcium-Magnesium-Zinc Tablet PO SCH (19:00)
[2018-01-10] MEDS: LEVALBUTEROL 0.63 MG/3 ML NEB RESP TX SCH ×2 (19:00→22:49)
[2018-01-10 19:19] LABS: ABG Base Excess -5.3 MMOL/L (-2.5-2.5); ABG HCO3 20.1 MMOL/L (20-26); ABG Oxygen Saturation 99.9 % (95-100); ABG PCO2 43.1 MM HG (35-48); ABG PH 7.296 (7.35-7.45); ABG TCO2 19.4 MMOL/L (23-27)
[2018-01-10] MEDS ORDERED: NON-FORMULARY MEDICATION (Melatonin [Melatonin] 10 MG) PO SCH (21:00)
[2018-01-10 22:38] LABS: Calcium 8.5 MG/DL (8.5-10.1)
[2018-01-10 22:39] LABS: Osmolality,Calculated 242.9 MOS/KG (273-304); Potassium 5.5 MMOL/L (3.5-5.1)
[2018-01-10 22:59] LABS: Calcium 8.5 MG/DL (8.5-10.1); Potassium 5.6 MMOL/L (3.5-5.1)
[2018-01-10] MEDS ORDERED: CARVEDILOL 12.5 MG TABLET PO SCH (23:30)
[2018-01-10] MEDS ORDERED: ISOSORBIDE MONONITRATE 30 MG TABLET PO SCH (23:30)
[2018-01-10] MEDS ORDERED: CETIRIZINE 10 MG TABLET PO SCH (23:30)
[2018-01-10] MEDS ORDERED: LETROZOLE 2.5 MG TABLET PO SCH (23:30)
[2018-01-10] MEDS ORDERED: OLMESARTAN 20 MG TABLET PO SCH (23:30)
[2018-01-10] MEDS ORDERED: LACTOBACILLUS ACIDOPHILUS/BULGARICUS CAPLET PO SCH (23:30)
[2018-01-10] MEDS ORDERED: MULTIVITAMIN (OCUVITE) TABLET PO SCH (23:30)
[2018-01-10] MEDS ORDERED: CALCIUM (CARBONATE)/VITAMIN D 500 MG-200 UNIT TABLET PO SCH (23:30)
[2018-01-11] MEDS ORDERED: hydrALAZINE 20 MG/1 ML VIAL IV PRN (00:22)
[2018-01-11] MEDS: MONTELUKAST 10 MG TABLET PO SCH ×2 (00:52→21:06)
[2018-01-11] MEDS: MEGESTROL 40 MG TABLET PO SCH (00:52)
[2018-01-11 03:14] LABS: Allen Test Positive; Pt O2 Delivery Device Ventilator
[2018-01-11 03:19] LABS: ABG Base Excess -4.2 MMOL/L (-2.5-2.5); ABG Oxygen Saturation 99.2 % (95-100); ABG PCO2 39.1 MM HG (35-48); ABG PH 7.342 (7.35-7.45); ABG TCO2 19.2 MMOL/L (23-27)
[2018-01-11] MEDS: LEVALBUTEROL 0.63 MG/3 ML NEB RESP TX SCH ×2 (03:45→06:52)
[2018-01-11 05:17] LABS: Basophils % 0.1 % (0.0-0.8); Hematocrit 29.5 VOL% (35.7-47.0); Hemoglobin 10.6 GM/DL (12.0-16.0); Immature Granulocytes % 0.7 %; Immature Granulocytes Absolute 0.07 #; Lymphocytes # 1.1 10*3/uL (1.4-4.0); Lymphocytes % 10.2 % (21.3-54.2); Mean Corpuscular HGB Conc 35.9 GM/DL (32-36); Mean Corpuscular Hemoglobin 31 PG (27-34); Mean Corpuscular Volume 84.8 FL (87-102); Mean Platelet Volume 9.5 FL (9.6-12.0); Monocytes # 1.4 10*3/uL (0.11-0.8); Platelet Count 369 T/CUMM (130-400); Red Blood Count 3.48 MC/CUMM (3.8-5.5); Red Cell Distribution Width 15.5 % (9.3-17.3); White Blood Count 10.5 T/CUMM (4-12)
[2018-01-11 05:47] LABS: Calcium 8.6 MG/DL (8.5-10.1); Osmolality,Calculated 247.8 MOS/KG (273-304); Potassium 4.9 MMOL/L (3.5-5.1)
[2018-01-11 06:54] LABS: Calcium 8.5 MG/DL (8.5-10.1); Osmolality,Calculated 249.6 MOS/KG (273-304); Potassium 4.9 MMOL/L (3.5-5.1)
[2018-01-11] MEDS: PROPOFOL 1,000 MG/100 ML BOTTLE IV SCH ×2 (07:06→08:10)
[2018-01-11] MEDS ORDERED: GLUCAGON 1 MG VIAL IM PRN (07:45)
[2018-01-11] MEDS ORDERED: DEXTROSE 50% 25 GM/50 ML VIAL IV PRN (07:45)
[2018-01-11] MEDS ORDERED: ENALAPRIL 2.5 MG/2 ML VIAL IV PRN (07:53)
[2018-01-11 08:28] LABS: Allen Test Positive; Pt O2 Delivery Device Ventilator
[2018-01-11] MEDS: ALBUTEROL/IPRATROPIUM 3 ML NEB RESP TX SCH ×3 (08:28→19:41)
[2018-01-11 08:30] LABS: ABG Base Excess -2.4 MMOL/L (-2.5-2.5); ABG HCO3 24.3 MMOL/L (20-26); ABG Oxygen Saturation 96.7 % (95-100); ABG PCO2 50.1 MM HG (35-48); ABG PH 7.303 (7.35-7.45); ABG PO2 97.3 MM HG (80-95); ABG TCO2 25.8 MMOL/L (23-27)
[2018-01-11] MEDS: SODIUM CHLORIDE 3% INJ 500 ML IV SCH (08:46)
[2018-01-11] MEDS: CARVEDILOL 12.5 MG TABLET PER TUBE SCH ×2 (08:47→21:06)
[2018-01-11] MEDS: DEXAMETHASONE 4 MG/1 ML VIAL IV SCH ×3 (08:48→23:33)
[2018-01-11] MEDS: ASPIRIN 325 MG TABLET PER TUBE SCH (08:48)
[2018-01-11] MEDS: ENOXAPARIN 30 MG/0.3 ML SYRINGE SUBCUT SCH (08:48)
[2018-01-11] MEDS: FUROSEMIDE 40 MG/4 ML VIAL IV SCH ×2 (08:48→16:04)
[2018-01-11] MEDS ORDERED: cloNIDine 0.3 MG/24 HR PATCH TRANSDERM SCH (09:00)
[2018-01-11] MEDS ORDERED: NITROGLYCERIN 0.3 MG/HR PATCH TRANSDERM SCH (09:00)
[2018-01-11 10:40] LABS: Calcium 7.9 MG/DL (8.5-10.1); Osmolality,Calculated 254.3 MOS/KG (273-304); Potassium 5.2 MMOL/L (3.5-5.1)
[2018-01-11] MEDS: NITROGLYCERIN 0.1 MG/HR PATCH TRANSDERM SCH (11:58)
[2018-01-11] MEDS: NITROGLYCERIN 0.2 MG/HR PATCH TRANSDERM SCH (11:59)
[2018-01-11] MEDS: INSULIN LISPRO 100 UNIT/ML SUBCUT SCH ×3 (13:08→23:32)
[2018-01-11] MEDS: PANTOPRAZOLE 40 MG VIAL IV SCH (13:08)
[2018-01-11] MEDS: hydrALAZINE 10 MG TABLET PO SCH ×2 (14:39→21:06)
[2018-01-11] MEDS ORDERED: SKIN HEALING OINT (AQUAPHOR) 50 GM TUBE TOP PRN (14:56)
[2018-01-11 15:03] LABS: Calcium 7.9 MG/DL (8.5-10.1); Osmolality,Calculated 258.1 MOS/KG (273-304); Potassium 5.1 MMOL/L (3.5-5.1)
[2018-01-11 15:48] LABS: Apearance,Urine CLEAR (Clear); Bilirubin,Urine Negative (Negative); Blood, Urine Small mg/dL (Negative); Glucose,Urine (UA) Negative (Negative); Ketones,Urine Negative (Negative); Nitrite,Urine Negative (Negative); Protein,Urine 100 MG/DL; RBC,Urine 13 /HPF (0-4); Squamous Epithelial Cell,Urine Occasional /HPF (0-10); Urine Color Yellow (Yellow); Urine Urobilinogen < 2.0 EU/DL (0.2-1.0); WBC,Urine 12 /HPF (0-6)
[2018-01-11] MEDS ORDERED: FUROSEMIDE 20 MG/2 ML VIAL ONE (15:50)
[2018-01-11] MEDS: ALPRAZolam 0.25 MG TABLET PER TUBE PRN (16:26)
[2018-01-11] MEDS: MIDAZOLAM 100 MG in SODIUM CHLORIDE 0.9% 80 ML IV PRN (16:26)
[2018-01-11] MEDS ORDERED: LACTOBACILLUS ACIDOPHILUS/BULGARICUS CAPLET PER TUBE SCH (19:00)
[2018-01-11 20:09] LABS: Calcium 7.8 MG/DL (8.5-10.1); Osmolality,Calculated 262.8 MOS/KG (273-304); Potassium 4.7 MMOL/L (3.5-5.1)
[2018-01-11] MEDS ORDERED: OLMESARTAN 20 MG TABLET PO SCH (21:00)
[2018-01-11] MEDS: LETROZOLE 2.5 MG TABLET PO SCH (21:06)
[2018-01-11] MEDS: LACTOBACILLUS ACIDOPHILUS/BULGARICUS CAPLET PER TUBE SCH (21:06)
[2018-01-11] MEDS: MULTIVITAMIN (OCUVITE) TABLET PO SCH (21:06)
[2018-01-11 21:36] LABS: Calcium 7.7 MG/DL (8.5-10.1); Osmolality,Calculated 259.1 MOS/KG (273-304)
[2018-01-12] MEDS: ALBUTEROL/IPRATROPIUM 3 ML NEB RESP TX SCH ×4 (00:21→19:10)
[2018-01-12] MEDS: SODIUM CHLORIDE 3% INJ 500 ML IV SCH (01:49)
[2018-01-12 04:39] LABS: Hematocrit 23.7 VOL% (35.7-47.0); Hemoglobin 8.4 GM/DL (12.0-16.0); Immature Granulocytes % 0.5 %; Immature Granulocytes Absolute 0.04 #; Lymphocytes # 0.7 10*3/uL (1.4-4.0); Lymphocytes % 8.4 % (21.3-54.2); Mean Corpuscular HGB Conc 35.4 GM/DL (32-36); Mean Corpuscular Hemoglobin 30 PG (27-34); Mean Corpuscular Volume 85.3 FL (87-102); Mean Platelet Volume 9.1 FL (9.6-12.0); Monocytes # 0.6 10*3/uL (0.11-0.8); Monocytes % 7.5 % (1.7-12.7); Neutrophils # 6.9 10*3/uL (1.4-7.4); Neutrophils % 83.6 % (38.7-73.9); Platelet Count 264 T/CUMM (130-400); Red Blood Count 2.78 MC/CUMM (3.8-5.5); Red Cell Distribution Width 15.9 % (9.3-17.3); White Blood Count 8.3 T/CUMM (4-12)
[2018-01-12 04:58] LABS: ABG Base Excess -0.9 MMOL/L (-2.5-2.5); ABG HCO3 23.7 MMOL/L (20-26); ABG Oxygen Saturation 98.6 % (95-100); ABG PCO2 34.1 MM HG (35-48); ABG PH 7.435 (7.35-7.45); ABG TCO2 20.9 MMOL/L (23-27)
[2018-01-12 05:04] LABS: Hypochromasia Slight; Lymphocytes 5 % (20-55); Platelet Estimate Adequate; Segmented Neutrophils 88 % (50-85); Total Cells Counted 100
[2018-01-12 05:14] LABS: Calcium 7.6 MG/DL (8.5-10.1); Osmolality,Calculated 271.4 MOS/KG (273-304); Potassium 4.8 MMOL/L (3.5-5.1)
[2018-01-12 05:19] LABS: Prealbumin 17.1 MG/DL (20-40)
[2018-01-12] MEDS: INSULIN LISPRO 100 UNIT/ML SUBCUT SCH ×3 (05:53→18:29)
[2018-01-12] MEDS: PROPOFOL 1,000 MG/100 ML BOTTLE IV SCH (06:01)
[2018-01-12] MEDS: ENOXAPARIN 30 MG/0.3 ML SYRINGE SUBCUT SCH (09:53)
[2018-01-12] MEDS: FUROSEMIDE 40 MG/4 ML VIAL IV SCH ×2 (09:54→16:23)
[2018-01-12] MEDS: DEXAMETHASONE 4 MG/1 ML VIAL IV SCH ×2 (09:54→16:22)
[2018-01-12] MEDS: ASPIRIN 325 MG TABLET PER TUBE SCH (09:54)
[2018-01-12] MEDS: CARVEDILOL 12.5 MG TABLET PER TUBE SCH ×2 (09:54→20:10)
[2018-01-12] MEDS: hydrALAZINE 10 MG TABLET PO SCH ×2 (09:58→20:11)
[2018-01-12] MEDS: SODIUM CHLORIDE 1 GM TABLET PER TUBE SCH ×2 (09:58→12:58)
[2018-01-12] MEDS: MIDAZOLAM 100 MG in SODIUM CHLORIDE 0.9% 80 ML IV PRN (10:01)
[2018-01-12] MEDS: NITROGLYCERIN 0.1 MG/HR PATCH TRANSDERM SCH (12:10)
[2018-01-12] MEDS: NITROGLYCERIN 0.2 MG/HR PATCH TRANSDERM SCH (12:11)
[2018-01-12] MEDS: PANTOPRAZOLE 40 MG VIAL IV SCH (12:57)
[2018-01-12 14:31] LABS: Calcium 7.5 MG/DL (8.5-10.1); Osmolality,Calculated 290.2 MOS/KG (273-304); Potassium 4.6 MMOL/L (3.5-5.1)
[2018-01-12] MEDS: LACTOBACILLUS ACIDOPHILUS/BULGARICUS CAPLET PER TUBE SCH (20:11)
[2018-01-12] MEDS: MULTIVITAMIN (OCUVITE) TABLET PO SCH (20:12)
[2018-01-12] MEDS: MONTELUKAST 10 MG TABLET PO SCH (20:12)
[2018-01-12] MEDS: LETROZOLE 2.5 MG TABLET PO SCH (20:12)
[2018-01-12] MEDS: OLMESARTAN 5 MG TABLET PO SCH (20:13)
[2018-01-13] MEDS: DEXAMETHASONE 4 MG/1 ML VIAL IV SCH ×4 (00:06→20:48)
[2018-01-13] MEDS: INSULIN LISPRO 100 UNIT/ML SUBCUT SCH ×5 (00:07→23:18)
[2018-01-13] MEDS: ALBUTEROL/IPRATROPIUM 3 ML NEB RESP TX SCH ×5 (00:48→23:59)
[2018-01-13] MEDS: PROPOFOL 1,000 MG/100 ML BOTTLE IV SCH ×2 (02:14→20:51)
[2018-01-13 04:26] LABS: Allen Test Positive; Pt O2 Delivery Device Ventilator
[2018-01-13 04:42] LABS: ABG Base Excess 0.9 MMOL/L (-2.5-2.5); ABG HCO3 23.8 MMOL/L (20-26); ABG PCO2 33.4 MM HG (35-48); ABG PH 7.471 (7.35-7.45); ABG PO2 152.7 MM HG (80-95); ABG TCO2 24.8 MMOL/L (23-27)
[2018-01-13] MEDS: MIDAZOLAM 100 MG in SODIUM CHLORIDE 0.9% 80 ML IV PRN (05:52)
[2018-01-13 05:54] LABS: Basophils % 0.1 % (0.0-0.8); Hematocrit 26.6 VOL% (35.7-47.0); Hemoglobin 8.9 GM/DL (12.0-16.0); Immature Granulocytes % 1.1 %; Lymphocytes % 10.8 % (21.3-54.2); Mean Corpuscular HGB Conc 33.5 GM/DL (32-36); Mean Corpuscular Hemoglobin 30 PG (27-34); Mean Corpuscular Volume 89.6 FL (87-102); Mean Platelet Volume 9.8 FL (9.6-12.0); Monocytes # 0.7 10*3/uL (0.11-0.8); Monocytes % 7.8 % (1.7-12.7); Neutrophils # 7.1 10*3/uL (1.4-7.4); Neutrophils % 80.2 % (38.7-73.9); Platelet Count 250 T/CUMM (130-400); Red Blood Count 2.97 MC/CUMM (3.8-5.5); Red Cell Distribution Width 16.5 % (9.3-17.3); White Blood Count 8.9 T/CUMM (4-12)
[2018-01-13 06:14] LABS: Calcium 7.7 MG/DL (8.5-10.1); Osmolality,Calculated 299.7 MOS/KG (273-304); Potassium 4.7 MMOL/L (3.5-5.1)
[2018-01-13] MEDS: FUROSEMIDE 40 MG/4 ML VIAL IV SCH ×2 (07:12→09:05)
[2018-01-13 07:51] LABS: ABG Oxygen Saturation 99.1 % (95-100)
[2018-01-13] MEDS: ENOXAPARIN 30 MG/0.3 ML SYRINGE SUBCUT SCH (09:05)
[2018-01-13] MEDS: ASPIRIN 325 MG TABLET PER TUBE SCH (09:06)
[2018-01-13] MEDS: NITROGLYCERIN 0.2 MG/HR PATCH TRANSDERM SCH (09:06)
[2018-01-13] MEDS: CARVEDILOL 12.5 MG TABLET PER TUBE SCH ×2 (09:06→20:48)
[2018-01-13] MEDS: hydrALAZINE 10 MG TABLET PO SCH ×2 (09:06→20:48)
[2018-01-13] MEDS: NITROGLYCERIN 0.1 MG/HR PATCH TRANSDERM SCH (09:07)
[2018-01-13] MEDS: PANTOPRAZOLE 40 MG VIAL IV SCH (13:13)
[2018-01-13] MEDS: LACTOBACILLUS ACIDOPHILUS/BULGARICUS CAPLET PER TUBE SCH (20:47)
[2018-01-13] MEDS: MONTELUKAST 10 MG TABLET PO SCH (20:48)
[2018-01-13] MEDS: MULTIVITAMIN (OCUVITE) TABLET PO SCH (20:48)
[2018-01-13] MEDS: LETROZOLE 2.5 MG TABLET PO SCH (20:48)
[2018-01-13] MEDS: OLMESARTAN 5 MG TABLET PO SCH (20:50)
[2018-01-14] MEDS: MIDAZOLAM 100 MG in SODIUM CHLORIDE 0.9% 80 ML IV PRN (04:03)
[2018-01-14 04:33] LABS: ABG Base Excess 3.5 MMOL/L (-2.5-2.5); ABG HCO3 27.6 MMOL/L (20-26); ABG Oxygen Saturation 99.2 % (95-100); ABG PCO2 38.6 MM HG (35-48); ABG TCO2 25.7 MMOL/L (23-27)
[2018-01-14] MEDS: INSULIN LISPRO 100 UNIT/ML SUBCUT SCH ×2 (05:11→19:45)
[2018-01-14 05:26] LABS: Basophils % 0.1 % (0.0-0.8); Hematocrit 23.8 VOL% (35.7-47.0); Hemoglobin 8.2 GM/DL (12.0-16.0); Immature Granulocytes % 1.5 %; Immature Granulocytes Absolute 0.14 #; Lymphocytes # 1.1 10*3/uL (1.4-4.0); Lymphocytes % 11.6 % (21.3-54.2); Mean Corpuscular HGB Conc 34.5 GM/DL (32-36); Mean Corpuscular Hemoglobin 30 PG (27-34); Mean Corpuscular Volume 88.1 FL (87-102); Mean Platelet Volume 9.6 FL (9.6-12.0); Monocytes # 0.9 10*3/uL (0.11-0.8); Monocytes % 9.7 % (1.7-12.7); Neutrophils # 7.2 10*3/uL (1.4-7.4); Neutrophils % 77.1 % (38.7-73.9); Platelet Count 318 T/CUMM (130-400); Red Cell Distribution Width 16.8 % (9.3-17.3); White Blood Count 9.3 T/CUMM (4-12)
[2018-01-14 06:08] LABS: Calcium 8.1 MG/DL (8.5-10.1); Osmolality,Calculated 311.1 MOS/KG (273-304); Potassium 4.6 MMOL/L (3.5-5.1)
[2018-01-14] MEDS: ALBUTEROL/IPRATROPIUM 3 ML NEB RESP TX SCH ×3 (07:03→19:03)
[2018-01-14] MEDS ORDERED: DEXAMETHASONE 4 MG/1 ML VIAL IV SCH (07:30)
[2018-01-14] MEDS: FUROSEMIDE 40 MG/4 ML VIAL IV SCH (09:27)
[2018-01-14 09:28] LABS: ABG Base Excess 2.8 MMOL/L (-2.5-2.5); ABG HCO3 26.9 MMOL/L (20-26); ABG Oxygen Saturation 99.2 % (95-100); ABG PCO2 38.4 MM HG (35-48); ABG PH 7.452 (7.35-7.45); ABG TCO2 24.9 MMOL/L (23-27); Pt O2 Delivery Device Ventilator
[2018-01-14] MEDS: CARVEDILOL 12.5 MG TABLET PER TUBE SCH ×2 (09:28→21:27)
[2018-01-14] MEDS: hydrALAZINE 10 MG TABLET PO SCH ×2 (09:29→21:26)
[2018-01-14] MEDS: ASPIRIN 325 MG TABLET PER TUBE SCH (09:29)
[2018-01-14] MEDS: ENOXAPARIN 30 MG/0.3 ML SYRINGE SUBCUT SCH (09:29)
[2018-01-14] MEDS: NITROGLYCERIN 0.2 MG/HR PATCH TRANSDERM SCH (09:29)
[2018-01-14] MEDS: NITROGLYCERIN 0.1 MG/HR PATCH TRANSDERM SCH (09:30)
[2018-01-14 12:10] LABS: ABG Base Excess 3.9 MMOL/L (-2.5-2.5); ABG HCO3 27.5 MMOL/L (20-26); ABG PCO2 37.7 MM HG (35-48); ABG PH 7.481 (7.35-7.45); ABG PO2 93.5 MM HG (80-95); ABG TCO2 28.7 MMOL/L (23-27)
[2018-01-14] MEDS: PANTOPRAZOLE 40 MG VIAL IV SCH (12:45)
[2018-01-14] MEDS: ALPRAZolam 0.25 MG TABLET PER TUBE PRN (19:57)
[2018-01-14] MEDS: LETROZOLE 2.5 MG TABLET PO SCH (21:26)
[2018-01-14] MEDS: MULTIVITAMIN (OCUVITE) TABLET PO SCH (21:26)
[2018-01-14] MEDS: MONTELUKAST 10 MG TABLET PO SCH (21:26)
[2018-01-14] MEDS: LACTOBACILLUS ACIDOPHILUS/BULGARICUS CAPLET PER TUBE SCH (21:27)
[2018-01-14] MEDS: OLMESARTAN 5 MG TABLET PO SCH (21:27)
[2018-01-15] MEDS: ALBUTEROL/IPRATROPIUM 3 ML NEB RESP TX SCH ×5 (00:02→20:15)
[2018-01-15] MEDS: INSULIN LISPRO 100 UNIT/ML SUBCUT SCH ×4 (01:01→17:50)
[2018-01-15 05:30] LABS: Basophils % 0.2 % (0.0-0.8); Eosinophils % 0.2 % (0.00-10.9); Hematocrit 26.8 VOL% (35.7-47.0); Hemoglobin 9.2 GM/DL (12.0-16.0); Immature Granulocytes % 1.6 %; Mean Corpuscular HGB Conc 34.3 GM/DL (32-36); Mean Corpuscular Hemoglobin 30 PG (27-34); Mean Corpuscular Volume 87.3 FL (87-102); Mean Platelet Volume 9.1 FL (9.6-12.0); Monocytes # 1.5 10*3/uL (0.11-0.8); Monocytes % 12.1 % (1.7-12.7); Neutrophils # 8.6 10*3/uL (1.4-7.4); Neutrophils % 69.9 % (38.7-73.9); Platelet Count 362 T/CUMM (130-400); Red Blood Count 3.07 MC/CUMM (3.8-5.5); Red Cell Distribution Width 16.8 % (9.3-17.3); White Blood Count 12.3 T/CUMM (4-12)
[2018-01-15 05:41] LABS: Osmolality,Calculated 307.8 MOS/KG (273-304); Potassium 3.7 MMOL/L (3.5-5.1)
[2018-01-15] MEDS: ASPIRIN 325 MG TABLET PER TUBE SCH (08:23)
[2018-01-15] MEDS: NITROGLYCERIN 0.2 MG/HR PATCH TRANSDERM SCH (08:23)
[2018-01-15] MEDS: NITROGLYCERIN 0.1 MG/HR PATCH TRANSDERM SCH (08:23)
[2018-01-15] MEDS: FUROSEMIDE 20 MG TABLET PO SCH (08:24)
[2018-01-15] MEDS: CARVEDILOL 12.5 MG TABLET PER TUBE SCH ×2 (08:24→22:24)
[2018-01-15] MEDS: ENOXAPARIN 30 MG/0.3 ML SYRINGE SUBCUT SCH (08:24)
[2018-01-15] MEDS: hydrALAZINE 10 MG TABLET PO SCH ×2 (08:24→22:24)
[2018-01-15] MEDS: LETROZOLE 2.5 MG TABLET PO SCH (22:23)
[2018-01-15] MEDS: MONTELUKAST 10 MG TABLET PO SCH (22:23)
[2018-01-15] MEDS: MULTIVITAMIN (OCUVITE) TABLET PO SCH (22:23)
[2018-01-15] MEDS: POTASSIUM CHLORIDE 20 MEQ TABLET PO SCH (22:24)
[2018-01-15] MEDS: MEGESTROL 40 MG TABLET PO SCH (22:24)
[2018-01-15] MEDS: LACTOBACILLUS ACIDOPHILUS/BULGARICUS CAPLET PO SCH (22:24)
[2018-01-16] MEDS: ALBUTEROL/IPRATROPIUM 3 ML NEB RESP TX SCH ×4 (00:02→19:47)
[2018-01-16] MEDS: OLMESARTAN 5 MG TABLET PO SCH ×2 (00:13→20:21)
[2018-01-16] MEDS: ACETAMINOPHEN 325 MG TABLET PO PRN (00:38)
[2018-01-16] MEDS: INSULIN LISPRO 100 UNIT/ML SUBCUT SCH ×5 (00:38→23:12)
[2018-01-16 06:33] LABS: Basophils % 0.1 % (0.0-0.8); Eosinophils # 0.1 10*3/uL (0.0-0.87); Eosinophils % 0.2 % (0.00-10.9); Hematocrit 24.2 VOL% (35.7-47.0); Hemoglobin 8.4 GM/DL (12.0-16.0); Immature Granulocytes % 1.9 %; Immature Granulocytes Absolute 0.43 #; Lymphocytes # 1.9 10*3/uL (1.4-4.0); Lymphocytes % 8.2 % (21.3-54.2); Mean Corpuscular HGB Conc 34.7 GM/DL (32-36); Mean Corpuscular Hemoglobin 30 PG (27-34); Mean Corpuscular Volume 86.1 FL (87-102); Mean Platelet Volume 9.6 FL (9.6-12.0); Monocytes # 1.1 10*3/uL (0.11-0.8); Monocytes % 4.6 % (1.7-12.7); Neutrophils # 19.7 10*3/uL (1.4-7.4); Platelet Count 331 T/CUMM (130-400); Red Blood Count 2.81 MC/CUMM (3.8-5.5); Red Cell Distribution Width 16.5 % (9.3-17.3); White Blood Count 23.2 T/CUMM (4-12)
[2018-01-16 06:40] LABS: Calcium 7.7 MG/DL (8.5-10.1); Osmolality,Calculated 279.5 MOS/KG (273-304); Potassium 3.7 MMOL/L (3.5-5.1)
[2018-01-16 07:00] LABS: Hypochromasia 1+; Lymphocytes 5 % (20-55); Ovalocytes Slight; Platelet Estimate Adequate; Segmented Neutrophils 90 % (50-85); Total Cells Counted 100
[2018-01-16] MEDS: FUROSEMIDE 20 MG TABLET PO SCH (09:02)
[2018-01-16] MEDS: CARVEDILOL 12.5 MG TABLET PER TUBE SCH ×2 (09:02→20:21)
[2018-01-16] MEDS: ENOXAPARIN 30 MG/0.3 ML SYRINGE SUBCUT SCH (09:02)
[2018-01-16] MEDS: PANTOPRAZOLE 40 MG TABLET PO SCH (09:03)
[2018-01-16] MEDS: ASPIRIN EC 81 MG TABLET PO SCH (09:03)
[2018-01-16] MEDS: MEGESTROL 40 MG TABLET PO SCH ×2 (09:03→20:20)
[2018-01-16] MEDS: hydrALAZINE 10 MG TABLET PO SCH ×2 (09:03→20:20)
[2018-01-16] MEDS: PROPOFOL 1,000 MG/100 ML BOTTLE IV SCH (11:28)
[2018-01-16] MEDS: NITROGLYCERIN 0.1 MG/HR PATCH TRANSDERM SCH (14:15)
[2018-01-16] MEDS: NITROGLYCERIN 0.2 MG/HR PATCH TRANSDERM SCH (14:15)
[2018-01-16 16:08] LABS: % Iron Saturation 9.3 % (18-50); Ferritin 557.9 ng/ml (8-252)
[2018-01-16] MEDS: POTASSIUM CHLORIDE 20 MEQ TABLET PO SCH ×2 (17:45→18:12)
[2018-01-16] MEDS: ERGOCALCIFEROL 50,000 UNIT CAPSULE PO SCH (17:46)
[2018-01-16 19:39] LABS: Apearance,Urine CLEAR (Clear); Bilirubin,Urine Negative (Negative); Blood, Urine Negative (Negative); Glucose,Urine (UA) Negative (Negative); Ketones,Urine Negative (Negative); Mucus,Urine Occasional /LPF (Occasional); Nitrite,Urine Negative (Negative); Protein,Urine 100 MG/DL; RBC,Urine 1 /HPF (0-4); Urine Color Yellow (Yellow); Urine Urobilinogen < 2.0 EU/DL (0.2-1.0); WBC,Urine 1 /HPF (0-6)
[2018-01-16] MEDS: MULTIVITAMIN (OCUVITE) TABLET PO SCH (20:21)
[2018-01-16] MEDS: ALPRAZolam 0.25 MG TABLET PO PRN (20:21)
[2018-01-16] MEDS: CALCIUM (CARBONATE)/VITAMIN D 600 MG-400 UNIT TABLET PO SCH (20:21)
[2018-01-16] MEDS: MONTELUKAST 10 MG TABLET PO SCH (20:21)
[2018-01-16] MEDS: LACTOBACILLUS ACIDOPHILUS/BULGARICUS CAPLET PO SCH (20:21)
[2018-01-16] MEDS: LETROZOLE 2.5 MG TABLET PO SCH (20:22)
[2018-01-17] MEDS: ALBUTEROL/IPRATROPIUM 3 ML NEB RESP TX SCH ×4 (00:44→19:40)
[2018-01-17] MEDS: INSULIN LISPRO 100 UNIT/ML SUBCUT SCH ×4 (05:31→23:44)
[2018-01-17 06:49] LABS: Basophils % 0.2 % (0.0-0.8); Eosinophils # 0.1 10*3/uL (0.0-0.87); Eosinophils % 0.5 % (0.00-10.9); Hematocrit 22.6 VOL% (35.7-47.0); Hemoglobin 7.9 GM/DL (12.0-16.0); Immature Granulocytes Absolute 0.58 #; Lymphocytes # 1.5 10*3/uL (1.4-4.0); Lymphocytes % 7.7 % (21.3-54.2); Mean Corpuscular Hemoglobin 30 PG (27-34); Mean Corpuscular Volume 85.9 FL (87-102); Mean Platelet Volume 9.8 FL (9.6-12.0); Monocytes # 0.7 10*3/uL (0.11-0.8); Monocytes % 3.5 % (1.7-12.7); Neutrophils # 16.3 10*3/uL (1.4-7.4); Neutrophils % 85.1 % (38.7-73.9); Platelet Count 290 T/CUMM (130-400); Red Blood Count 2.63 MC/CUMM (3.8-5.5); Red Cell Distribution Width 16.5 % (9.3-17.3); White Blood Count 19.1 T/CUMM (4-12)
[2018-01-17 07:11] LABS: Osmolality,Calculated 281.5 MOS/KG (273-304); Potassium 3.6 MMOL/L (3.5-5.1)
[2018-01-17 07:13] LABS: Band Neutrophils 2 % (0-10); Hypochromasia Slight; Lymphocytes 7 % (20-55); Ovalocytes Slight; Platelet Estimate Adequate; Segmented Neutrophils 87 % (50-85); Total Cells Counted 100
[2018-01-17] MEDS ORDERED: SODIUM CHLORIDE 0.9% 1,000 ML IV PRN (08:19)
[2018-01-17] MEDS ORDERED: LISINOPRIL 2.5 MG TABLET PO SCH (09:00)
[2018-01-17] MEDS: ENOXAPARIN 30 MG/0.3 ML SYRINGE SUBCUT SCH (09:19)
[2018-01-17] MEDS: PANTOPRAZOLE 40 MG TABLET PO SCH (09:20)
[2018-01-17] MEDS: CARVEDILOL 12.5 MG TABLET PER TUBE SCH ×2 (09:20→20:14)
[2018-01-17] MEDS: MEGESTROL 40 MG TABLET PO SCH ×2 (09:20→20:14)
[2018-01-17] MEDS: FUROSEMIDE 20 MG TABLET PO SCH (09:20)
[2018-01-17] MEDS: hydrALAZINE 10 MG TABLET PO SCH ×2 (09:20→20:14)
[2018-01-17] MEDS: CALCIUM (CARBONATE)/VITAMIN D 600 MG-400 UNIT TABLET PO SCH ×2 (09:20→20:14)
[2018-01-17] MEDS: ASPIRIN EC 81 MG TABLET PO SCH (09:20)
[2018-01-17] MEDS: ACETAMINOPHEN 325 MG TABLET PO PRN (09:22)
[2018-01-17] MEDS: NITROGLYCERIN 0.2 MG/HR PATCH TRANSDERM SCH (09:30)
[2018-01-17] MEDS: NITROGLYCERIN 0.1 MG/HR PATCH TRANSDERM SCH (09:30)
[2018-01-17] MEDS ORDERED: LACTULOSE 20 GM/30 ML UDCUP PO ONE (14:51)
[2018-01-17] MEDS: POTASSIUM CHLORIDE 20 MEQ TABLET PO SCH ×2 (17:09→19:28)
[2018-01-17] MEDS: LACTOBACILLUS ACIDOPHILUS/BULGARICUS CAPLET PO SCH (20:14)
[2018-01-17] MEDS: ALPRAZolam 0.25 MG TABLET PO PRN (20:14)
[2018-01-17] MEDS: OLMESARTAN 5 MG TABLET PO SCH (20:14)
[2018-01-17] MEDS: LETROZOLE 2.5 MG TABLET PO SCH (20:14)
[2018-01-17] MEDS: MONTELUKAST 10 MG TABLET PO SCH (20:14)
[2018-01-17] MEDS: MULTIVITAMIN (OCUVITE) TABLET PO SCH (20:14)
[2018-01-18] MEDS: ALBUTEROL/IPRATROPIUM 3 ML NEB RESP TX SCH ×4 (01:08→19:38)
[2018-01-18 05:29] LABS: Basophils % 0.2 % (0.0-0.8); Eosinophils # 0.1 10*3/uL (0.0-0.87); Eosinophils % 0.5 % (0.00-10.9); Hematocrit 23.5 VOL% (35.7-47.0); Hemoglobin 8.4 GM/DL (12.0-16.0); Immature Granulocytes % 2.2 %; Immature Granulocytes Absolute 0.44 #; Lymphocytes # 1.2 10*3/uL (1.4-4.0); Mean Corpuscular HGB Conc 35.7 GM/DL (32-36); Mean Corpuscular Hemoglobin 30 PG (27-34); Mean Corpuscular Volume 84.8 FL (87-102); Mean Platelet Volume 9.7 FL (9.6-12.0); Monocytes # 0.9 10*3/uL (0.11-0.8); Monocytes % 4.4 % (1.7-12.7); Neutrophils # 17.3 10*3/uL (1.4-7.4); Neutrophils % 86.7 % (38.7-73.9); Platelet Count 310 T/CUMM (130-400); Red Blood Count 2.77 MC/CUMM (3.8-5.5); Red Cell Distribution Width 16.1 % (9.3-17.3); White Blood Count 19.9 T/CUMM (4-12)
[2018-01-18] MEDS: INSULIN LISPRO 100 UNIT/ML SUBCUT SCH ×3 (05:48→18:01)
[2018-01-18 05:49] LABS: Calcium 7.2 MG/DL (8.5-10.1); Osmolality,Calculated 270.2 MOS/KG (273-304)
[2018-01-18 05:58] LABS: Band Neutrophils 1 % (0-10); Hypochromasia 1+; Lymphocytes 6 % (20-55); Ovalocytes Slight; Platelet Estimate Adequate; Segmented Neutrophils 91 % (50-85); Total Cells Counted 100
[2018-01-18] MEDS: ASPIRIN EC 81 MG TABLET PO SCH (08:54)
[2018-01-18] MEDS: CALCIUM (CARBONATE)/VITAMIN D 600 MG-400 UNIT TABLET PO SCH ×2 (09:53→22:20)
[2018-01-18] MEDS: MEGESTROL 40 MG TABLET PO SCH ×2 (09:54→22:20)
[2018-01-18] MEDS: PANTOPRAZOLE 40 MG TABLET PO SCH (09:54)
[2018-01-18] MEDS: POLYETHYLENE GLYCOL POWDER 17 GM PACK PO SCH (09:55)
[2018-01-18] MEDS: hydrALAZINE 10 MG TABLET PO SCH ×2 (09:56→22:21)
[2018-01-18] MEDS: NITROGLYCERIN 0.2 MG/HR PATCH TRANSDERM SCH (09:57)
[2018-01-18] MEDS: CARVEDILOL 12.5 MG TABLET PER TUBE SCH ×2 (09:57→22:21)
[2018-01-18] MEDS: NITROGLYCERIN 0.1 MG/HR PATCH TRANSDERM SCH (09:57)
[2018-01-18] MEDS: ACETAMINOPHEN 325 MG TABLET PO PRN ×2 (10:05→22:20)
[2018-01-18] MEDS: CLINDAMYCIN INJ 600 MG in PREMIX 1 EACH IV SCH ×2 (16:03→22:21)
[2018-01-18] MEDS: POTASSIUM CHLORIDE 20 MEQ TABLET PO SCH (18:02)
[2018-01-18] MEDS: FUROSEMIDE 20 MG TABLET PO SCH (21:27)
[2018-01-18] MEDS: MULTIVITAMIN (OCUVITE) TABLET PO SCH (22:19)
[2018-01-18] MEDS: LACTOBACILLUS ACIDOPHILUS/BULGARICUS CAPLET PO SCH (22:19)
[2018-01-18] MEDS: LETROZOLE 2.5 MG TABLET PO SCH (22:20)
[2018-01-18] MEDS: MONTELUKAST 10 MG TABLET PO SCH (22:20)
[2018-01-18] MEDS: OLMESARTAN 5 MG TABLET PO SCH (22:21)
[2018-01-19] MEDS: ALBUTEROL/IPRATROPIUM 3 ML NEB RESP TX SCH ×4 (00:50→20:39)
[2018-01-19] MEDS: INSULIN LISPRO 100 UNIT/ML SUBCUT SCH ×4 (02:06→18:21)
[2018-01-19] MEDS ORDERED: LIDOCAINE 1%/EPI INJ 20 ML VIAL ONE (06:41)
[2018-01-19] MEDS ORDERED: BUPIVACAINE MPF 0.25% /EPI 30 ML VIAL ONE (06:41)
[2018-01-19] MEDS: CLINDAMYCIN INJ 600 MG in PREMIX 1 EACH IV SCH ×3 (06:42→22:45)
[2018-01-19 08:08] LABS: Basophils % 0.1 % (0.0-0.8); Eosinophils # 0.1 10*3/uL (0.0-0.87); Eosinophils % 0.6 % (0.00-10.9); Hematocrit 22.2 VOL% (35.7-47.0); Hemoglobin 7.4 GM/DL (12.0-16.0); Immature Granulocytes % 0.8 %; Immature Granulocytes Absolute 0.11 #; Lymphocytes # 1.2 10*3/uL (1.4-4.0); Lymphocytes % 8.3 % (21.3-54.2); Mean Corpuscular HGB Conc 33.3 GM/DL (32-36); Mean Corpuscular Hemoglobin 29 PG (27-34); Mean Corpuscular Volume 87.4 FL (87-102); Mean Platelet Volume 9.9 FL (9.6-12.0); Monocytes # 0.8 10*3/uL (0.11-0.8); Monocytes % 5.7 % (1.7-12.7); Neutrophils % 84.5 % (38.7-73.9); Platelet Count 306 T/CUMM (130-400); Red Blood Count 2.54 MC/CUMM (3.8-5.5); Red Cell Distribution Width 16.1 % (9.3-17.3); White Blood Count 14.2 T/CUMM (4-12)
[2018-01-19 08:18] LABS: Calcium 7.5 MG/DL (8.5-10.1); Osmolality,Calculated 264.4 MOS/KG (273-304); Potassium 4.1 MMOL/L (3.5-5.1)
[2018-01-19] MEDS: CARVEDILOL 12.5 MG TABLET PER TUBE SCH ×2 (08:22→22:46)
[2018-01-19] MEDS: PANTOPRAZOLE 40 MG TABLET PO SCH (08:22)
[2018-01-19 08:47] LABS: Band Neutrophils 4 % (0-10); Eosinophils 1 % (0-10); Hypochromasia 1+; Lymphocytes 10 % (20-55); Microcytosis 1+; Ovalocytes Slight; Segmented Neutrophils 80 % (50-85); Total Cells Counted 100
[2018-01-19 08:48] LABS: Platelet Estimate Normal
[2018-01-19] MEDS: NITROGLYCERIN 0.2 MG/HR PATCH TRANSDERM SCH (08:50)
[2018-01-19] MEDS: MEGESTROL 40 MG TABLET PO SCH ×2 (08:50→22:46)
[2018-01-19] MEDS: NITROGLYCERIN 0.1 MG/HR PATCH TRANSDERM SCH (08:50)
[2018-01-19] MEDS ORDERED: SEVOFLURANE 1 UNIT/15 MINUTE INH ONE (09:52)
[2018-01-19] MEDS ORDERED: fentaNYL 100 MCG/2 ML VIAL ONE (09:52)
[2018-01-19] MEDS ORDERED: ETOMIDATE 40 MG/20 ML VIAL IV ONE (09:52)
[2018-01-19] MEDS ORDERED: ACETAMINOPHEN 1,000 MG/100 ML VIAL IV ONE (09:52)
[2018-01-19] MEDS ORDERED: PHENYLEPHRINE 10 MG/1 ML VIAL IV ONE (09:52)
[2018-01-19] MEDS ORDERED: SUCCINYLCHOLINE 200 MG/10 ML VIAL ONE (09:53)
[2018-01-19] MEDS ORDERED: SODIUM CHLORIDE 0.9% 250 ML IV ONE (09:53)
[2018-01-19] MEDS: ASPIRIN EC 81 MG TABLET PO SCH (12:32)
[2018-01-19] MEDS: hydrALAZINE 10 MG TABLET PO SCH ×2 (12:32→22:48)
[2018-01-19] MEDS: CALCIUM (CARBONATE)/VITAMIN D 600 MG-400 UNIT TABLET PO SCH ×2 (12:32→22:46)
[2018-01-19] MEDS: ENOXAPARIN 30 MG/0.3 ML SYRINGE SUBCUT SCH (12:33)
[2018-01-19] MEDS: POLYETHYLENE GLYCOL POWDER 17 GM PACK PO SCH (15:44)
[2018-01-19] MEDS: FUROSEMIDE 20 MG TABLET PO SCH (15:45)
[2018-01-19] MEDS: ACETAMINOPHEN 325 MG TABLET PO PRN ×2 (18:21→22:46)
[2018-01-19] MEDS: POTASSIUM CHLORIDE 20 MEQ TABLET PO SCH (18:21)
[2018-01-19] MEDS: MULTIVITAMIN (OCUVITE) TABLET PO SCH (22:45)
[2018-01-19] MEDS: LACTOBACILLUS ACIDOPHILUS/BULGARICUS CAPLET PO SCH (22:46)
[2018-01-19] MEDS: MONTELUKAST 10 MG TABLET PO SCH (22:46)
[2018-01-19] MEDS: OLMESARTAN 5 MG TABLET PO SCH (22:46)
[2018-01-19] MEDS: LETROZOLE 2.5 MG TABLET PO SCH (22:47)
[2018-01-19] MEDS: ALPRAZolam 0.25 MG TABLET PO PRN (22:47)
[2018-01-20] MEDS: ALBUTEROL/IPRATROPIUM 3 ML NEB RESP TX SCH ×4 (00:24→19:52)
[2018-01-20] MEDS: INSULIN LISPRO 100 UNIT/ML SUBCUT SCH ×5 (01:21→18:41)
[2018-01-20] MEDS: ACETAMINOPHEN 325 MG TABLET PO PRN ×3 (05:41→20:04)
[2018-01-20] MEDS: CLINDAMYCIN INJ 600 MG in PREMIX 1 EACH IV SCH ×2 (07:46→15:41)
[2018-01-20] MEDS: traMADol 50 MG TABLET PO PRN ×2 (09:15→18:32)
[2018-01-20] MEDS: CARVEDILOL 12.5 MG TABLET PER TUBE SCH ×2 (09:16→20:05)
[2018-01-20] MEDS: hydrALAZINE 10 MG TABLET PO SCH ×2 (09:16→20:06)
[2018-01-20] MEDS: PANTOPRAZOLE 40 MG TABLET PO SCH (09:16)
[2018-01-20] MEDS: ENOXAPARIN 30 MG/0.3 ML SYRINGE SUBCUT SCH (09:16)
[2018-01-20] MEDS: CALCIUM (CARBONATE)/VITAMIN D 600 MG-400 UNIT TABLET PO SCH ×2 (09:16→20:04)
[2018-01-20] MEDS: FUROSEMIDE 20 MG TABLET PO SCH (09:17)
[2018-01-20] MEDS: ASPIRIN EC 81 MG TABLET PO SCH (09:25)
[2018-01-20] MEDS: MEGESTROL 40 MG TABLET PO SCH ×2 (10:56→20:04)
[2018-01-20] MEDS: POLYETHYLENE GLYCOL POWDER 17 GM PACK PO SCH (10:56)
[2018-01-20] MEDS: ALPRAZolam 0.25 MG TABLET PO PRN (15:41)
[2018-01-20] MEDS: LACTOBACILLUS ACIDOPHILUS/BULGARICUS CAPLET PO SCH (20:04)
[2018-01-20] MEDS: LETROZOLE 2.5 MG TABLET PO SCH (20:04)
[2018-01-20] MEDS: POTASSIUM CHLORIDE 20 MEQ TABLET PO SCH (20:05)
[2018-01-20] MEDS: MONTELUKAST 10 MG TABLET PO SCH (20:05)
[2018-01-20] MEDS: MULTIVITAMIN (OCUVITE) TABLET PO SCH (20:06)
[2018-01-20] MEDS: OLMESARTAN 5 MG TABLET PO SCH (20:06)
[2018-01-21] MEDS: CLINDAMYCIN INJ 600 MG in PREMIX 1 EACH IV SCH ×2 (00:07→06:01)
[2018-01-21] MEDS: ALPRAZolam 0.25 MG TABLET PO PRN (00:07)
[2018-01-21] MEDS: ALBUTEROL/IPRATROPIUM 3 ML NEB RESP TX SCH ×4 (00:15→19:40)
[2018-01-21] MEDS: INSULIN LISPRO 100 UNIT/ML SUBCUT SCH ×5 (01:05→21:31)
[2018-01-21] MEDS: traMADol 50 MG TABLET PO PRN ×2 (04:30→14:44)
[2018-01-21 07:06] LABS: Basophils % 0.1 % (0.0-0.8); Eosinophils # 0.1 10*3/uL (0.0-0.87); Eosinophils % 1.5 % (0.00-10.9); Hemoglobin 7.5 GM/DL (12.0-16.0); Immature Granulocytes % 0.6 %; Immature Granulocytes Absolute 0.05 #; Lymphocytes # 0.9 10*3/uL (1.4-4.0); Lymphocytes % 10.4 % (21.3-54.2); Mean Corpuscular HGB Conc 32.6 GM/DL (32-36); Mean Corpuscular Hemoglobin 29 PG (27-34); Mean Corpuscular Volume 89.5 FL (87-102); Mean Platelet Volume 9.9 FL (9.6-12.0); Monocytes # 0.7 10*3/uL (0.11-0.8); Monocytes % 8.6 % (1.7-12.7); Neutrophils # 6.8 10*3/uL (1.4-7.4); Neutrophils % 78.8 % (38.7-73.9); Platelet Count 329 T/CUMM (130-400); Red Blood Count 2.57 MC/CUMM (3.8-5.5); Red Cell Distribution Width 16.4 % (9.3-17.3); White Blood Count 8.6 T/CUMM (4-12)
[2018-01-21 07:27] LABS: Hypochromasia 1+
[2018-01-21 07:28] LABS: Microcytosis Slight; Ovalocytes Slight; Platelet Estimate Adequate
[2018-01-21 07:31] LABS: Calcium 8.4 MG/DL (8.5-10.1); Osmolality,Calculated 264.1 MOS/KG (273-304); Potassium 5.4 MMOL/L (3.5-5.1)
[2018-01-21] MEDS: FUROSEMIDE 20 MG TABLET PO SCH (09:05)
[2018-01-21] MEDS: POLYETHYLENE GLYCOL POWDER 17 GM PACK PO SCH (09:05)
[2018-01-21] MEDS: PANTOPRAZOLE 40 MG TABLET PO SCH (09:05)
[2018-01-21] MEDS: ENOXAPARIN 30 MG/0.3 ML SYRINGE SUBCUT SCH (09:06)
[2018-01-21] MEDS: hydrALAZINE 10 MG TABLET PO SCH ×2 (09:06→21:26)
[2018-01-21] MEDS: CALCIUM (CARBONATE)/VITAMIN D 600 MG-400 UNIT TABLET PO SCH ×2 (09:06→21:25)
[2018-01-21] MEDS: CARVEDILOL 12.5 MG TABLET PER TUBE SCH ×2 (09:06→21:26)
[2018-01-21] MEDS: ASPIRIN EC 81 MG TABLET PO SCH (09:06)
[2018-01-21] MEDS: MEGESTROL 40 MG TABLET PO SCH ×2 (09:06→21:26)
[2018-01-21] MEDS ORDERED: SODIUM POLYSTYRENE SULFATE 15 GM/60 ML BOTTLE PO STA (09:39)
[2018-01-21] MEDS ORDERED: LEVOFLOXACIN INJ 500 MG in PREMIX 1 EACH IV ONE (10:00)
[2018-01-21 11:38] LABS: Apearance,Urine Slightly Hazy (Clear); Bacteria,Urine Occasional /HPF (Few); Bilirubin,Urine Negative (Negative); Blood, Urine Negative (Negative); Glucose,Urine (UA) Negative (Negative); Ketones,Urine Negative (Negative); Nitrite,Urine Negative (Negative); Protein,Urine 100 MG/DL; RBC,Urine 1 /HPF (0-4); Urine Color Yellow (Yellow); Urine Specific Gravity 1.008 (1.001-1.035); Urine Urobilinogen < 2.0 EU/DL (0.2-1.0); WBC,Urine 11 /HPF (0-6)
[2018-01-21] MEDS: SODIUM HYPOCHLORITE 0.25% IRRIG 473 ML BOTTLE TOP SCH (13:07)
[2018-01-21] MEDS: VANCOMYCIN INJ 1,000 MG in SODIUM CHLORIDE 0.9% 250 ML IV SCH (14:58)
[2018-01-21] MEDS: PIPERACILLIN/TAZOBACTAM 3,375 MG in SODIUM CHLORIDE 0.9% 100 ML IV SCH (17:34)
[2018-01-21] MEDS: POTASSIUM CHLORIDE 20 MEQ TABLET PO SCH (21:24)
[2018-01-21] MEDS: ACETAMINOPHEN 325 MG TABLET PO PRN (21:25)
[2018-01-21] MEDS: MULTIVITAMIN (OCUVITE) TABLET PO SCH (21:25)
[2018-01-21] MEDS: LETROZOLE 2.5 MG TABLET PO SCH (21:25)
[2018-01-21] MEDS: LACTOBACILLUS ACIDOPHILUS/BULGARICUS CAPLET PO SCH (21:25)
[2018-01-21] MEDS: MONTELUKAST 10 MG TABLET PO SCH (21:25)
[2018-01-21] MEDS: OLMESARTAN 5 MG TABLET PO SCH (21:25)
[2018-01-22] MEDS: ALBUTEROL/IPRATROPIUM 3 ML NEB RESP TX SCH ×4 (01:00→20:09)
[2018-01-22] MEDS: PIPERACILLIN/TAZOBACTAM 3,375 MG in SODIUM CHLORIDE 0.9% 100 ML IV SCH ×2 (01:20→11:50)
[2018-01-22] MEDS: CARVEDILOL 12.5 MG TABLET PER TUBE SCH ×3 (06:09→21:33)
[2018-01-22] MEDS: hydrALAZINE 10 MG TABLET PO SCH ×3 (06:09→21:33)
[2018-01-22 06:18] LABS: Basophils % 0.2 % (0.0-0.8); Eosinophils # 0.1 10*3/uL (0.0-0.87); Eosinophils % 1.2 % (0.00-10.9); Hematocrit 21.4 VOL% (35.7-47.0); Hemoglobin 7.5 GM/DL (12.0-16.0); Immature Granulocytes % 0.5 %; Immature Granulocytes Absolute 0.03 #; Lymphocytes # 0.7 10*3/uL (1.4-4.0); Lymphocytes % 10.9 % (21.3-54.2); Mean Corpuscular Hemoglobin 30 PG (27-34); Mean Corpuscular Volume 85.9 FL (87-102); Mean Platelet Volume 9.2 FL (9.6-12.0); Monocytes # 0.6 10*3/uL (0.11-0.8); Monocytes % 9.8 % (1.7-12.7); Neutrophils # 4.7 10*3/uL (1.4-7.4); Neutrophils % 77.4 % (38.7-73.9); Platelet Count 353 T/CUMM (130-400); Red Blood Count 2.49 MC/CUMM (3.8-5.5); Red Cell Distribution Width 16.3 % (9.3-17.3)
[2018-01-22] MEDS ORDERED: BUPIVACAINE MPF 0.25% /EPI 30 ML VIAL ONE (06:28)
[2018-01-22] MEDS ORDERED: LIDOCAINE 1% 20 ML VIAL ONE (06:28)
[2018-01-22 06:45] LABS: Band Neutrophils 4 % (0-10); Eosinophils 1 % (0-10); Hypochromasia 1+; Lymphocytes 12 % (20-55); Segmented Neutrophils 73 % (50-85); Total Cells Counted 100
[2018-01-22 06:46] LABS: Microcytosis 1+; Ovalocytes Slight
[2018-01-22 06:49] LABS: Calcium 8.7 MG/DL (8.5-10.1); Osmolality,Calculated 259.2 MOS/KG (273-304); Potassium 5.6 MMOL/L (3.5-5.1)
[2018-01-22] MEDS ORDERED: MIDAZOLAM 2 MG/2 ML VIAL ONE (06:53)
[2018-01-22] MEDS ORDERED: CALCIUM CHLORIDE 1,000 MG/10 ML VIAL IV ONE (07:47)
[2018-01-22] MEDS ORDERED: EPINEPHrine 1 MG/ML VIAL ONE (07:47)
[2018-01-22] MEDS ORDERED: PROPOFOL 200 MG/20 ML VIAL IV ONE (07:47)
[2018-01-22] MEDS ORDERED: ONDANSETRON 4 MG/2 ML VIAL ONE (07:47)
[2018-01-22] MEDS ORDERED: MORPHINE 10 MG/1 ML VIAL ONE (07:47)
[2018-01-22] MEDS ORDERED: PHENYLEPHRINE 1 MG/10 ML SYRINGE IV ONE (07:47)
[2018-01-22] MEDS: MORPHINE 10 MG/1 ML VIAL IV PRN ×2 (07:50→07:55)
[2018-01-22] MEDS: INSULIN LISPRO 100 UNIT/ML SUBCUT SCH ×4 (07:53→21:32)
[2018-01-22] MEDS ORDERED: ONDANSETRON 4 MG/2 ML VIAL IV PRN (07:56)
[2018-01-22] MEDS: POLYETHYLENE GLYCOL POWDER 17 GM PACK PO SCH (09:21)
[2018-01-22] MEDS: CALCIUM (CARBONATE)/VITAMIN D 600 MG-400 UNIT TABLET PO SCH ×2 (09:21→21:33)
[2018-01-22] MEDS: MEGESTROL 40 MG TABLET PO SCH ×2 (09:22→21:33)
[2018-01-22] MEDS: ENOXAPARIN 30 MG/0.3 ML SYRINGE SUBCUT SCH (09:22)
[2018-01-22] MEDS: PANTOPRAZOLE 40 MG TABLET PO SCH (09:22)
[2018-01-22] MEDS: ASPIRIN EC 81 MG TABLET PO SCH (09:22)
[2018-01-22] MEDS: FUROSEMIDE 20 MG TABLET PO SCH (09:22)
[2018-01-22] MEDS: SODIUM HYPOCHLORITE 0.25% IRRIG 473 ML BOTTLE TOP SCH (09:34)
[2018-01-22] MEDS ORDERED: LEVOFLOXACIN INJ 250 MG in PREMIX 1 EACH IV SCH (10:00)
[2018-01-22] MEDS: VANCOMYCIN INJ 1,000 MG in SODIUM CHLORIDE 0.9% 250 ML IV SCH (10:26)
[2018-01-22] MEDS ORDERED: SODIUM CHLORIDE 0.9% 1,000 ML IV PRN (11:36)
[2018-01-22] MEDS: traMADol 50 MG TABLET PO PRN (15:24)
[2018-01-22] MEDS: ALPRAZolam 0.25 MG TABLET PO PRN (15:27)
[2018-01-22] MEDS: POTASSIUM CHLORIDE 20 MEQ TABLET PO SCH (18:26)
[2018-01-22] MEDS: ACETAMINOPHEN 325 MG TABLET PO PRN (20:00)
[2018-01-22] MEDS: LACTOBACILLUS ACIDOPHILUS/BULGARICUS CAPLET PO SCH (21:33)
[2018-01-22] MEDS: MULTIVITAMIN (OCUVITE) TABLET PO SCH (21:33)
[2018-01-22] MEDS: LETROZOLE 2.5 MG TABLET PO SCH (21:33)
[2018-01-22] MEDS: DOXYCYCLINE HYCLATE 100 MG CAPSULE PO SCH (21:33)
[2018-01-22] MEDS: MONTELUKAST 10 MG TABLET PO SCH (21:33)
[2018-01-22] MEDS: OLMESARTAN 5 MG TABLET PO SCH (21:37)
[2018-01-23] MEDS: ALPRAZolam 0.25 MG TABLET PO PRN (00:37)
[2018-01-23] MEDS: traMADol 50 MG TABLET PO PRN ×2 (00:37→10:36)
[2018-01-23] MEDS: ALBUTEROL/IPRATROPIUM 3 ML NEB RESP TX SCH ×4 (03:04→20:05)
[2018-01-23 07:12] LABS: Basophils % 0.2 % (0.0-0.8); Eosinophils # 0.1 10*3/uL (0.0-0.87); Eosinophils % 1.5 % (0.00-10.9); Hematocrit 19.6 VOL% (35.7-47.0); Immature Granulocytes % 0.4 %; Immature Granulocytes Absolute 0.02 #; Lymphocytes % 20.3 % (21.3-54.2); Mean Corpuscular HGB Conc 34.7 GM/DL (32-36); Mean Corpuscular Hemoglobin 30 PG (27-34); Mean Platelet Volume 9.7 FL (9.6-12.0); Monocytes # 0.5 10*3/uL (0.11-0.8); Monocytes % 9.8 % (1.7-12.7); Neutrophils # 3.2 10*3/uL (1.4-7.4); Neutrophils % 67.8 % (38.7-73.9); Platelet Count 388 T/CUMM (130-400); Red Blood Count 2.28 MC/CUMM (3.8-5.5); Red Cell Distribution Width 16.5 % (9.3-17.3); White Blood Count 4.8 T/CUMM (4-12)
[2018-01-23 07:13] LABS: Hemoglobin 6.8 GM/DL (12.0-16.0)
[2018-01-23] MEDS: INSULIN LISPRO 100 UNIT/ML SUBCUT SCH ×4 (10:01→23:21)
[2018-01-23] MEDS ORDERED: ALPRAZolam 0.25 MG TABLET PO PRN (10:05)
[2018-01-23] MEDS: MEGESTROL 40 MG TABLET PO SCH ×2 (10:35→23:18)
[2018-01-23] MEDS: hydrALAZINE 10 MG TABLET PO SCH ×2 (10:35→23:18)
[2018-01-23] MEDS: ASPIRIN EC 81 MG TABLET PO SCH (10:35)
[2018-01-23] MEDS: CALCIUM (CARBONATE)/VITAMIN D 600 MG-400 UNIT TABLET PO SCH ×2 (10:35→23:17)
[2018-01-23] MEDS: DOXYCYCLINE HYCLATE 100 MG CAPSULE PO SCH ×2 (10:36→23:17)
[2018-01-23] MEDS: FLUCONAZOLE 100 MG TABLET PO SCH (10:36)
[2018-01-23] MEDS: CARVEDILOL 12.5 MG TABLET PER TUBE SCH ×2 (10:36→23:18)
[2018-01-23] MEDS: FUROSEMIDE 20 MG TABLET PO SCH (10:37)
[2018-01-23] MEDS: ENOXAPARIN 30 MG/0.3 ML SYRINGE SUBCUT SCH (10:37)
[2018-01-23] MEDS: POLYETHYLENE GLYCOL POWDER 17 GM PACK PO SCH (10:37)
[2018-01-23] MEDS: PANTOPRAZOLE 40 MG TABLET PO SCH (10:49)
[2018-01-23] MEDS: SODIUM HYPOCHLORITE 0.25% IRRIG 473 ML BOTTLE TOP SCH (11:30)
[2018-01-23] MEDS ORDERED: SODIUM CHLORIDE 0.9% 1,000 ML IV PRN (13:17)
[2018-01-23] MEDS ORDERED: diphenhydrAMINE CAP 25 MG CAPSULE PO PRN (13:19)
[2018-01-23] MEDS ORDERED: FUROSEMIDE 40 MG/4 ML VIAL IV ONE ×2 (13:21→23:30)
[2018-01-23] MEDS: ERGOCALCIFEROL 50,000 UNIT CAPSULE PO SCH (14:28)
[2018-01-23] MEDS: ACETAMINOPHEN 325 MG TABLET PO PRN (14:29)
[2018-01-23] MEDS: MONTELUKAST 10 MG TABLET PO SCH (23:17)
[2018-01-23] MEDS: OLMESARTAN 5 MG TABLET PO SCH (23:17)
[2018-01-23] MEDS: MULTIVITAMIN (OCUVITE) TABLET PO SCH (23:17)
[2018-01-23] MEDS: LACTOBACILLUS ACIDOPHILUS/BULGARICUS CAPLET PO SCH (23:18)
[2018-01-23] MEDS: LETROZOLE 2.5 MG TABLET PO SCH (23:18)
[2018-01-24] MEDS: ALBUTEROL/IPRATROPIUM 3 ML NEB RESP TX SCH ×2 (01:57→07:14)
[2018-01-24 07:13] LABS: Basophils % 0.2 % (0.0-0.8); Eosinophils # 0.1 10*3/uL (0.0-0.87); Eosinophils % 1.7 % (0.00-10.9); Hematocrit 31.5 VOL% (35.7-47.0); Immature Granulocytes % 0.9 %; Immature Granulocytes Absolute 0.04 #; Lymphocytes # 1.3 10*3/uL (1.4-4.0); Lymphocytes % 27.7 % (21.3-54.2); Mean Corpuscular HGB Conc 35.2 GM/DL (32-36); Mean Corpuscular Hemoglobin 30 PG (27-34); Mean Corpuscular Volume 85.4 FL (87-102); Mean Platelet Volume 9.2 FL (9.6-12.0); Monocytes # 0.5 10*3/uL (0.11-0.8); Monocytes % 10.5 % (1.7-12.7); Neutrophils # 2.7 10*3/uL (1.4-7.4); Platelet Count 343 T/CUMM (130-400); Red Blood Count 3.69 MC/CUMM (3.8-5.5); Red Cell Distribution Width 14.7 % (9.3-17.3); White Blood Count 4.7 T/CUMM (4-12)
[2018-01-24 07:14] LABS: Hemoglobin 11.1 GM/DL (12.0-16.0)
[2018-01-24 07:51] LABS: Osmolality,Calculated 261.9 MOS/KG (273-304); Potassium 4.5 MMOL/L (3.5-5.1)
[2018-01-24] MEDS: DOXYCYCLINE HYCLATE 100 MG CAPSULE PO SCH (09:19)
[2018-01-24] MEDS: CALCIUM (CARBONATE)/VITAMIN D 600 MG-400 UNIT TABLET PO SCH (09:19)
[2018-01-24] MEDS: FUROSEMIDE 20 MG TABLET PO SCH (09:19)
[2018-01-24] MEDS: MEGESTROL 40 MG TABLET PO SCH (09:19)
[2018-01-24] MEDS: CARVEDILOL 12.5 MG TABLET PER TUBE SCH (09:19)
[2018-01-24] MEDS: PANTOPRAZOLE 40 MG TABLET PO SCH (09:19)
[2018-01-24] MEDS: hydrALAZINE 10 MG TABLET PO SCH (09:19)
[2018-01-24] MEDS: FLUCONAZOLE 100 MG TABLET PO SCH (09:19)
[2018-01-24] MEDS: ENOXAPARIN 30 MG/0.3 ML SYRINGE SUBCUT SCH (09:20)
[2018-01-24] MEDS: ASPIRIN EC 81 MG TABLET PO SCH (09:20)
[2018-01-24] MEDS: POLYETHYLENE GLYCOL POWDER 17 GM PACK PO SCH (09:37)
[2018-01-24] MEDS ORDERED: ALUMINUM/MAGNES/SIMETH MAX STR 30 ML UDCUP PO PRN (09:51)
[2018-01-24 10:25] VITALS: BP 167/65
[2018-01-24] MEDS: INSULIN LISPRO 100 UNIT/ML SUBCUT SCH (10:57)
== END 2018-01-24 12:31 | disposition swing bed (61) | DRG 166 ==
LOC: N.ED 08:22 → N.EDINP 11:06 → SUATTDRO 11:06 → N.EDINP 12:32 → N.ICU 22:49 → N.5E 01-15 16:39
PROVIDERS: ADMIT Internal Medicine; ATTEND Internal Medicine

== ENCOUNTER 2018-02-03 19:13 | Inpatient (IN) ==
[2018-02-03 21:45] LABS: ABG Base Excess -9.4 MMOL/L (-2.5-2.5); ABG Oxygen Saturation 99.5 % (95-100); ABG PCO2 57.5 MM HG (35-48); ABG TCO2 18.8 MMOL/L (23-27)
[2018-02-03 21:46] LABS: ABG PH 7.154 (7.35-7.45)
[2018-02-03 22:15] LABS: Basophils % 0.3 % (0.0-0.8); Eosinophils # 0.1 10*3/uL (0.0-0.87); Eosinophils % 0.9 % (0.00-10.9); Hematocrit 34.6 VOL% (35.7-47.0); Immature Granulocytes Absolute 0.09 #; Lymphocytes # 1.3 10*3/uL (1.4-4.0); Lymphocytes % 13.8 % (21.3-54.2); Mean Corpuscular HGB Conc 31.8 GM/DL (32-36); Mean Corpuscular Hemoglobin 30 PG (27-34); Mean Platelet Volume 8.6 FL (9.6-12.0); Monocytes # 0.5 10*3/uL (0.11-0.8); Neutrophils # 7.4 10*3/uL (1.4-7.4); Platelet Count 523 T/CUMM (130-400); Red Blood Count 3.68 MC/CUMM (3.8-5.5); Red Cell Distribution Width 15.5 % (9.3-17.3); White Blood Count 9.4 T/CUMM (4-12)
[2018-02-03 22:40] LABS: Alanine Aminotransferase 19 U/L (13-56); Albumin 2.9 G/DL (3.4-5.0); Alkaline Phosphatase 68 U/L (45-117); Aspartate Amino Transferase 16 U/L (0-37); Bilirubin,Total < 0.39 MG/DL (0.2-1.0); Blood Urea Nitrogen 28 MG/DL (7-18); Calcium 8.7 MG/DL (8.5-10.1); Glucose 140 MG/DL (74-106); Osmolality,Calculated 260.4 MOS/KG (273-304); Potassium 5.9 MMOL/L (3.5-5.1); Sodium 126 MMOL/L (136-145); Total Protein 7.1 G/DL (6.4-8.3)
[2018-02-03 22:42] LABS: Troponin I Only 0.055 NG/ML (0.00-0.045)
[2018-02-04 00:49] LABS: Apearance,Urine CLEAR (Clear); Bilirubin,Urine Negative (Negative); Blood, Urine Negative (Negative); Glucose,Urine (UA) Negative (Negative); Hyaline Casts,Urine 3 /LPF (0-3); Ketones,Urine Negative (Negative); Nitrite,Urine Negative (Negative); Protein,Urine 30 MG/DL; Urine Color Colorless (Yellow); Urine Specific Gravity 1.004 (1.001-1.035); Urine Urobilinogen < 2.0 EU/DL (0.2-1.0); WBC,Urine 1 /HPF (0-6)
[2018-02-04 01:11] LABS: PT Patient Result 10.1 SECS
[2018-02-04 03:20] LABS: ABG Base Excess -6.5 MMOL/L (-2.5-2.5); ABG HCO3 19.2 MMOL/L (20-26); ABG Oxygen Saturation 99.6 % (95-100); ABG PCO2 30.7 MM HG (35-48); ABG PH 7.372 (7.35-7.45); ABG TCO2 16.2 MMOL/L (23-27); Allen Test Positive; Pt O2 Delivery Device Ventilator
[2018-02-04 04:38] LABS: Basophils % 0.2 % (0.0-0.8); Eosinophils % 0.2 % (0.00-10.9); Hematocrit 31.6 VOL% (35.7-47.0); Hemoglobin 10.3 GM/DL (12.0-16.0); Immature Granulocytes % 0.9 %; Immature Granulocytes Absolute 0.06 #; Lymphocytes # 1.4 10*3/uL (1.4-4.0); Lymphocytes % 21.4 % (21.3-54.2); Mean Corpuscular HGB Conc 32.6 GM/DL (32-36); Mean Corpuscular Hemoglobin 30 PG (27-34); Mean Corpuscular Volume 92.1 FL (87-102); Mean Platelet Volume 9.3 FL (9.6-12.0); Monocytes # 0.2 10*3/uL (0.11-0.8); Monocytes % 2.4 % (1.7-12.7); Neutrophils # 4.9 10*3/uL (1.4-7.4); Neutrophils % 74.9 % (38.7-73.9); Platelet Count 465 T/CUMM (130-400); Red Blood Count 3.43 MC/CUMM (3.8-5.5); Red Cell Distribution Width 15.5 % (9.3-17.3); White Blood Count 6.6 T/CUMM (4-12)
[2018-02-04 05:00] LABS: Calcium 8.7 MG/DL (8.5-10.1); Osmolality,Calculated 262.4 MOS/KG (273-304)
[2018-02-05 04:35] LABS: Basophils % 0.1 % (0.0-0.8); Eosinophils % 0.2 % (0.00-10.9); Hematocrit 26.7 VOL% (35.7-47.0); Immature Granulocytes Absolute 0.08 #; Lymphocytes # 1.7 10*3/uL (1.4-4.0); Lymphocytes % 20.3 % (21.3-54.2); Mean Corpuscular HGB Conc 33.7 GM/DL (32-36); Mean Corpuscular Hemoglobin 30 PG (27-34); Mean Corpuscular Volume 87.5 FL (87-102); Monocytes % 12.1 % (1.7-12.7); Neutrophils # 5.5 10*3/uL (1.4-7.4); Neutrophils % 66.3 % (38.7-73.9); Platelet Count 450 T/CUMM (130-400); Red Blood Count 3.05 MC/CUMM (3.8-5.5); Red Cell Distribution Width 15.9 % (9.3-17.3); White Blood Count 8.3 T/CUMM (4-12)
[2018-02-05 04:38] LABS: ABG Base Excess -2.6 MMOL/L (-2.5-2.5); ABG HCO3 20.9 MMOL/L (20-26); ABG Oxygen Saturation 99.3 % (95-100); ABG PCO2 31.2 MM HG (35-48); ABG PH 7.443 (7.35-7.45); ABG PO2 257.6 MM HG (80-95); ABG TCO2 21.8 MMOL/L (23-27)
[2018-02-05 05:18] LABS: Calcium 7.9 MG/DL (8.5-10.1); Osmolality,Calculated 268.8 MOS/KG (273-304); Potassium 4.5 MMOL/L (3.5-5.1)
[2018-02-05 09:12] LABS: ABG Base Excess -3.2 MMOL/L (-2.5-2.5); ABG HCO3 21.8 MMOL/L (20-26); ABG Oxygen Saturation 99.8 % (95-100); ABG PCO2 35.7 MM HG (35-48); ABG PH 7.385 (7.35-7.45); ABG TCO2 19.5 MMOL/L (23-27)
[2018-02-05 12:04] LABS: ABG Base Excess -2.4 MMOL/L (-2.5-2.5); ABG HCO3 22.4 MMOL/L (20-26); ABG Oxygen Saturation 96.6 % (95-100); ABG PCO2 35.1 MM HG (35-48); ABG PH 7.402 (7.35-7.45); ABG PO2 84.3 MM HG (80-95); ABG TCO2 19.9 MMOL/L (23-27)
[2018-02-06 04:57] LABS: Basophils % 0.4 % (0.0-0.8); Eosinophils # 0.2 10*3/uL (0.0-0.87); Eosinophils % 2.6 % (0.00-10.9); Hematocrit 29.8 VOL% (35.7-47.0); Hemoglobin 9.7 GM/DL (12.0-16.0); Immature Granulocytes % 1.3 %; Lymphocytes # 1.9 10*3/uL (1.4-4.0); Lymphocytes % 24.1 % (21.3-54.2); Mean Corpuscular HGB Conc 32.6 GM/DL (32-36); Mean Corpuscular Hemoglobin 30 PG (27-34); Mean Corpuscular Volume 90.9 FL (87-102); Mean Platelet Volume 8.9 FL (9.6-12.0); Monocytes % 12.4 % (1.7-12.7); Neutrophils # 4.7 10*3/uL (1.4-7.4); Neutrophils % 59.2 % (38.7-73.9); Platelet Count 472 T/CUMM (130-400); Red Blood Count 3.28 MC/CUMM (3.8-5.5); Red Cell Distribution Width 15.8 % (9.3-17.3)
[2018-02-06 05:25] LABS: Osmolality,Calculated 267.1 MOS/KG (273-304); Potassium 4.9 MMOL/L (3.5-5.1)
[2018-02-07 04:12] LABS: Basophils % 0.3 % (0.0-0.8); Eosinophils # 0.3 10*3/uL (0.0-0.87); Eosinophils % 2.6 % (0.00-10.9); Hematocrit 30.6 VOL% (35.7-47.0); Hemoglobin 10.4 GM/DL (12.0-16.0); Lymphocytes # 2.6 10*3/uL (1.4-4.0); Lymphocytes % 24.4 % (21.3-54.2); Mean Corpuscular Hemoglobin 30 PG (27-34); Mean Corpuscular Volume 87.4 FL (87-102); Mean Platelet Volume 8.9 FL (9.6-12.0); Monocytes # 1.1 10*3/uL (0.11-0.8); Monocytes % 10.7 % (1.7-12.7); Neutrophils # 6.4 10*3/uL (1.4-7.4); Platelet Count 498 T/CUMM (130-400); Red Cell Distribution Width 15.3 % (9.3-17.3); White Blood Count 10.5 T/CUMM (4-12)
[2018-02-07 05:02] LABS: Calcium 9.1 MG/DL (8.5-10.1); Osmolality,Calculated 261.2 MOS/KG (273-304); Potassium 4.6 MMOL/L (3.5-5.1)
[2018-02-08 08:08] LABS: Calcium 8.4 MG/DL (8.5-10.1); Osmolality,Calculated 263.9 MOS/KG (273-304); Potassium 3.9 MMOL/L (3.5-5.1)
[2018-02-09 07:18] LABS: Calcium 8.5 MG/DL (8.5-10.1); Osmolality,Calculated 264.8 MOS/KG (273-304); Potassium 3.4 MMOL/L (3.5-5.1)
[2018-02-09 22:12] LABS: ABG Base Excess 3.9 MMOL/L (-2.5-2.5); ABG HCO3 27.7 MMOL/L (20-26); ABG Oxygen Saturation 90.8 % (95-100); ABG PCO2 36.5 MM HG (35-48); ABG PH 7.482 (7.35-7.45); ABG PO2 57.3 MM HG (80-95); ABG TCO2 24.3 MMOL/L (23-27)
[2018-02-10 02:45] LABS: Basophils % 0.1 % (0.0-0.8); Eosinophils # 0.1 10*3/uL (0.0-0.87); Eosinophils % 0.6 % (0.00-10.9); Hematocrit 31.7 VOL% (35.7-47.0); Hemoglobin 10.5 GM/DL (12.0-16.0); Immature Granulocytes % 1.1 %; Immature Granulocytes Absolute 0.16 #; Lymphocytes # 1.2 10*3/uL (1.4-4.0); Lymphocytes % 8.3 % (21.3-54.2); Mean Corpuscular HGB Conc 33.1 GM/DL (32-36); Mean Corpuscular Hemoglobin 29 PG (27-34); Mean Corpuscular Volume 88.1 FL (87-102); Mean Platelet Volume 8.8 FL (9.6-12.0); Monocytes # 1.3 10*3/uL (0.11-0.8); Monocytes % 8.9 % (1.7-12.7); Neutrophils # 11.7 10*3/uL (1.4-7.4); Platelet Count 461 T/CUMM (130-400); Red Cell Distribution Width 14.8 % (9.3-17.3); White Blood Count 14.5 T/CUMM (4-12)
[2018-02-10 03:01] LABS: Calcium 8.5 MG/DL (8.5-10.1); Osmolality,Calculated 265.9 MOS/KG (273-304); Potassium 3.4 MMOL/L (3.5-5.1)
[2018-02-10 13:56] LABS: Basophils % 0.1 % (0.0-0.8); Hematocrit 31.2 VOL% (35.7-47.0); Hemoglobin 10.6 GM/DL (12.0-16.0); Immature Granulocytes % 0.7 %; Immature Granulocytes Absolute 0.12 #; Lymphocytes # 1.4 10*3/uL (1.4-4.0); Lymphocytes % 7.5 % (21.3-54.2); Mean Corpuscular Hemoglobin 30 PG (27-34); Mean Corpuscular Volume 88.6 FL (87-102); Mean Platelet Volume 8.7 FL (9.6-12.0); Monocytes # 0.5 10*3/uL (0.11-0.8); Monocytes % 2.6 % (1.7-12.7); Neutrophils # 16.2 10*3/uL (1.4-7.4); Neutrophils % 89.1 % (38.7-73.9); Platelet Count 453 T/CUMM (130-400); Red Blood Count 3.52 MC/CUMM (3.8-5.5); Red Cell Distribution Width 15.2 % (9.3-17.3); White Blood Count 18.2 T/CUMM (4-12)
[2018-02-10 14:06] LABS: INR 1.1; PT Patient Result 11.9 SECS; Partial Thromboplastin Time 29.2 SECS (0-40)
[2018-02-10 14:09] LABS: Apearance,Urine CLEAR (Clear); Bilirubin,Urine Negative (Negative); Blood, Urine Moderate mg/dL (Negative); Glucose,Urine (UA) 50 mg/dL (Negative); Granular Casts,Urine 1 /LPF (0-1); Hyaline Casts,Urine 1 /LPF (0-3); Ketones,Urine Negative (Negative); Mucus,Urine Occasional /LPF (Occasional); Nitrite,Urine Negative (Negative); Protein,Urine 100 MG/DL; RBC,Urine 26 /HPF (0-4); Urine Color Yellow (Yellow); Urine Specific Gravity 1.012 (1.001-1.035); Urine Urobilinogen < 2.0 EU/DL (0.2-1.0); WBC,Urine 1 /HPF (0-6)
[2018-02-10 14:19] LABS: Alanine Aminotransferase 11 U/L (13-56); Albumin 2.4 G/DL (3.4-5.0); Alkaline Phosphatase 57 U/L (45-117); Aspartate Amino Transferase 16 U/L (0-37); Bilirubin,Total < 0.39 MG/DL (0.2-1.0); Blood Urea Nitrogen 37 MG/DL (7-18); Calcium 8.8 MG/DL (8.5-10.1); Glucose 173 MG/DL (74-106); Osmolality,Calculated 270.9 MOS/KG (273-304); Sodium 129 MMOL/L (136-145)
[2018-02-10 14:27] LABS: Troponin I Only 0.147 NG/ML (0.00-0.045)
[2018-02-10 21:04] LABS: Troponin I Only 0.096 NG/ML (0.00-0.045)
[2018-02-11 04:10] LABS: Basophils % 0.1 % (0.0-0.8); Hematocrit 29.9 VOL% (35.7-47.0); Hemoglobin 10.2 GM/DL (12.0-16.0); Immature Granulocytes Absolute 0.15 #; Lymphocytes # 1.5 10*3/uL (1.4-4.0); Lymphocytes % 10.6 % (21.3-54.2); Mean Corpuscular HGB Conc 34.1 GM/DL (32-36); Mean Corpuscular Hemoglobin 29 PG (27-34); Mean Corpuscular Volume 85.7 FL (87-102); Mean Platelet Volume 8.9 FL (9.6-12.0); Monocytes # 0.5 10*3/uL (0.11-0.8); Monocytes % 3.5 % (1.7-12.7); Neutrophils # 12.2 10*3/uL (1.4-7.4); Neutrophils % 84.8 % (38.7-73.9); Platelet Count 433 T/CUMM (130-400); Red Blood Count 3.49 MC/CUMM (3.8-5.5); Red Cell Distribution Width 15.4 % (9.3-17.3); White Blood Count 14.4 T/CUMM (4-12)
[2018-02-11 04:37] LABS: Calcium 8.9 MG/DL (8.5-10.1); Osmolality,Calculated 281.7 MOS/KG (273-304); Potassium 3.7 MMOL/L (3.5-5.1)
[2018-02-11 04:53] LABS: Folate 12.1 NG/ML (5.4-24.0)
[2018-02-12 05:18] LABS: Basophils % 0.1 % (0.0-0.8); Hematocrit 29.5 VOL% (35.7-47.0); Hemoglobin 10.2 GM/DL (12.0-16.0); Immature Granulocytes % 1.9 %; Immature Granulocytes Absolute 0.19 #; Lymphocytes # 1.5 10*3/uL (1.4-4.0); Mean Corpuscular HGB Conc 34.6 GM/DL (32-36); Mean Corpuscular Hemoglobin 30 PG (27-34); Mean Corpuscular Volume 85.8 FL (87-102); Mean Platelet Volume 9.1 FL (9.6-12.0); Monocytes # 0.5 10*3/uL (0.11-0.8); Monocytes % 4.6 % (1.7-12.7); Neutrophils % 78.4 % (38.7-73.9); Platelet Count 472 T/CUMM (130-400); Red Blood Count 3.44 MC/CUMM (3.8-5.5); Red Cell Distribution Width 15.4 % (9.3-17.3); White Blood Count 10.2 T/CUMM (4-12)
[2018-02-12 05:46] LABS: Albumin 2.4 G/DL (3.4-5.0); Bilirubin,Total 0.4 MG/DL (0.2-1.0); Calcium 8.6 MG/DL (8.5-10.1); Osmolality,Calculated 279.7 MOS/KG (273-304); Potassium 3.5 MMOL/L (3.5-5.1)
[2018-02-13 03:15] LABS: Basophils % 0.2 % (0.0-0.8); Hemoglobin 8.8 GM/DL (12.0-16.0); Immature Granulocytes % 2.5 %; Immature Granulocytes Absolute 0.29 #; Lymphocytes # 1.9 10*3/uL (1.4-4.0); Lymphocytes % 16.4 % (21.3-54.2); Mean Corpuscular HGB Conc 33.8 GM/DL (32-36); Mean Corpuscular Hemoglobin 29 PG (27-34); Mean Platelet Volume 9.3 FL (9.6-12.0); Monocytes # 0.8 10*3/uL (0.11-0.8); Monocytes % 7.1 % (1.7-12.7); Neutrophils # 8.5 10*3/uL (1.4-7.4); Neutrophils % 73.8 % (38.7-73.9); Platelet Count 403 T/CUMM (130-400); Red Blood Count 2.99 MC/CUMM (3.8-5.5); Red Cell Distribution Width 15.1 % (9.3-17.3); White Blood Count 11.5 T/CUMM (4-12)
[2018-02-13 03:43] LABS: Calcium 8.2 MG/DL (8.5-10.1); Osmolality,Calculated 281.2 MOS/KG (273-304); Potassium 3.8 MMOL/L (3.5-5.1)
[2018-02-13 12:10] VITALS: BP 88/53
== END 2018-02-13 13:36 | disposition swing bed (61) | DRG 208 ==
LOC: SUATTDRO 20:53 → N.CC 20:53 → N.2E 02-09 10:08 → N.TELES 02-09 23:19
PROVIDERS: ADMIT Internal Medicine; ATTEND Internal Medicine